=== PATIENT | female | born 1945 | race Caucasian/White ===

== ENCOUNTER 2024-10-29 06:14 | Day surgery (SDC) | payer MEDICARE, OTHER, SELFPAY ==
[2024-10-29] VITALS (12 sets, daily range): BP systolic 104–153; BP diastolic 54–78; BMI 28.6
[2024-10-29 09:18] LABS: ACT-LR - POC 313 Seconds (116-155)
[2024-10-29 09:42] LABS: ACT-LR - POC 248 Seconds (116-155)
--- NOTE | 2024-10-29 10:34 | ITS.CL.PN ---
Media Monitor - Procedure Note
Procedure
Procedure Note:
CARDIAC CATHETERIZATION REPORT
Date of Procedure: 10/29/2024
Referring: Dr. Dave Keen MD
Indication: severe aortic stenosis
PROCEDURE:
1. right heart catheterization
3. coronary angiography
3. iFR of OM1
4. iFR of LAD
ACCESS:
6 Cuban right radial artery
CATHETERS:
1. 6 Cuban AR2 (JR4 and JR5 did not reach)
2. 6 Cuban JL3.5
3. 6 Cuban XB 3.5 guide
4. 6 Cuban EBU 3.5 guide (better fit for LAD)
HEMODYNAMIC DATA
AO 171/82 (mean 112) mmHg
CORONARY ANGIOGRAPHY
Dominance: left
LM: calcified short vessel without obstructive disease
LAD: gives rise to a moderate sized D1 and wraps around the apex. There are serial 40-60% stenoses in the mid-LAD. The mid LAD was assessed by iFR.
LCx: gives rise to a large OM1, moderate size OM2, moderate size LPDA. There is a focal 30% stenosis in the proximal vessel, focal 60-70% stenosis in the OM1, and focal 50% stenosis in the LPDA. The OM1 was further assessed by iFR.
RCA: small non-dominant vessel with a focal 40% proximal stenosis.
iFR of OM1: Using a XB3.5 guide catheter, an Omni wire was normalized in the LM, and then advanced to the distal OM1 where iFR was measured 3 times and positive (0.81, 0.81, 0.81). On iFR pullback there was focal pattern with nearly the entire
contribution from the OM1 stenosis. iFR appropriately returned to 1.0 in the left main.
iFR of LAD: Due to LCx selectivity and short LM, the XB3.5 would not allowing wiring of the LAD so an EBU3.5 guide catheter was selected, the Omni wire normalized again in the left main, advanced to the distal LAD. iFR was measured 3 times and was
positive (0.75, 0.76, 0.75). There was a diffuse pattern on iFR pullback. iFR appropriately returned to 1.0 in the left main.
Closure Device: TR band
CONCLUSIONS:
1. 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
RECOMMENDATIONS:
1. Expectant management after cardiac catheterization via right radial approach.
2. Her CAD is amenable but not ideal for percutaneous revascularization given the long segment of LAD that would require stenting. Her symptoms are more consistent with severe than coronary artery disease. While at advanced age, her surgical risk
is relatively low and she is likely to require a second valve intervention in her lifetime. Given all these considerations, heart team discussion will be important to determine ideal approach: TAVR+/-PCI vs. AVR/CABG. Next step is TAVR CT scan to
complete her workup. She will see CT surgery in the office and we will then discuss her options at our multi-disciplinary TAVR meeting.
Copy to: Dr. Dave Keen MD (program officer); MAIA Heath (primary care)
Signed: Tomas Romero MD, PhD
[2024-10-29] MEDS: NSS 1000 IV (10:46)
== END 2024-10-29 14:05 | disposition home or self-care (01) ==
LOC: CATH 06:14
PROVIDERS: ATTENDING PHYSICIAN Student in an Organized Health Care Education/Training Program; FAMILY PHYSICIAN Nurse Practitioner Family; OTHER PHYSICIAN Internal Medicine Cardiovascular Disease
DX: I35.0 Nonrheumatic aortic (valve) stenosis (principal); I25.10 Atherosclerotic heart disease of native coronary artery without angina pectoris; Z79.82 Long term (current) use of aspirin; Z79.899 Other long term (current) drug therapy
CPT/HCPCS: 93799; 85347; 93454; 93458; C1769; C1887; C1894; Q9967

== ENCOUNTER → 2024-11-08 09:12 | Outpatient (REF) | payer MEDICARE, OTHER, SELFPAY | LOC: RAD 09:12 | PROVIDERS: ATTENDING PHYSICIAN Nurse Practitioner Adult Health; FAMILY PHYSICIAN Nurse Practitioner Family | DX: I35.0 Nonrheumatic aortic (valve) stenosis (principal) | CPT/HCPCS: 74174; 75572; Q9967 ==

== ENCOUNTER 2024-11-30 09:46 | Day surgery (SDC) | payer MEDICARE, OTHER, SELFPAY ==
[2024-11-30] VITALS (14 sets, daily range): BP systolic 101–155; BP diastolic 48–74; BMI 28.8
[2024-11-30 12:17] LABS: ACT-LR - POC 258 Seconds (116-155)
[2024-11-30 12:46] LABS: ACT-LR - POC 285 Seconds (116-155)
--- NOTE | 2024-11-30 17:05 | W.PN.UPDATE ---
Update Note
Progress Note Update
Pt seen post LAD and OM1 PCI. Right radial cath site without ht/bleeding, non tender. OOB ambulating. Post EKG NSR 65 w/RBBB as before, no acute changes, no vt/arrhythmia on tele. Pt and understand the importance of uninterrupted DAPT w/asa,
plavix post stenting, and will continue other meds as before. Severe noted and pt is on track for TAVR in the near future. Cardiac rehab will be delayed until post TAVR. Followup with Dr. Keen as scheduled. Home later today if cath site/tele
remain stable.
--- NOTE | 2024-11-30 18:20 | ITS.CL.PN ---
Home Planning Consultant Salesperson - Procedure Note
Procedure
Procedure Note:
CARDIAC CATHETERIZATION REPORT
Date of Procedure: 11/30/2024
Referring: Dr. Dave Keen MD
Indication: revascularization of obstructive coronary artery disease prior to TAVR
PROCEDURE(S)
1. Ultrasound guided vascular access
2. coronary angiography
3. IVUS LAD
4. PCI with stent to LAD
5. IVUS LCx
6. PCI with stent to LCx
7. Moderate sedation initial 15 minutes
8. Moderate sedation additional 15 minutes
ACCESS: 6F right radial artery (closure: radial band)
CATHETER: 6F EBU3.0 guide catheter (better fit than EBU 3.5)
VASCULAR ACCESS: Under ultrasound guidance, the right radial artery was identified and patency confirmed. The vessel was then accessed using a micropuncture needle and modified Selinger technique with needle entry visualized in real-time. An 6F
sheath placed.
MODERATE SEDATION: Greater than 30 minutes of procedural sedation was utilized. An independent medical associate was present to assist with and help manage the patient's level of consciousness and physiologic status.
CORONARY ANGIOGRAPHY
Dominance: right
LM: mild ostial narrowing
LAD: gives rise to a small D1, moderate caliber D2, and wraps around the apex. There are serial moderate stenoses in the mid LAD extending from the D2 takeoff distally. There is moderate 60% stenosis of the ostial diagonal.
LCx: gives rise to a large OM2, moderate caliber OM2, and moderate caliber LPL branch. The OM1 contains moderate disease in the proximal vessel with a focal region of 70% stenosis. There is otherwise mild disease only.
RCA: not injected as nor significant disease on recent coronary angiography
IVUS-guided PCI of the LAD
Heparin was administered to achieve ACT greater than 300 seconds. Runthrough wires were placed in the distal LAD, as well as the D2 for protection. Initial lesion preparation was performed with a 2.0 x 12 mm semi compliant balloon with full
expansion. IVUS was performed demonstrating a distal reference diameter of 2.5 mm and proximal reference diameter 3.0 mm proximal to the diagonal branch. A 2.5 x 38 mm Ulices [place] drug-eluting stent was selected and delivered with sufficient
proximal landing zone to allow for POT. There was full stent expansion at 14 tobin. The diagonal had ELENA-3 flow and the ostial stenosis actually looked improved in appearance. The diagonal protection wire was removed and then rewired through stent
struts. Proximal optimization was performed with a 3.0 x 8 mm NC balloon taken to 16 mmHg. The remainder of the stent was postdilated with a 2.75 x 15 mm NC balloon to 16 mmHg. There was noted to be a subtle distal edge dissection, which was
covered with an additional 2.5 x 15 mm Guild frontier drug-eluting stent taken to 14 tobin. The overlap was postdilated again with a 2.75 mm NC balloon to 16 mmHg. Final angiographic result was excellent. Final IVUS demonstrated full expansion and
apposition without edge dissection. We then turned our attention to the circumflex.
IVUS-guided PCI of the LCx
The wire was redirected to the circumflex and placed in the distal OM1 branch. Initial lesion preparation was performed with the 2.0 x 12 mm semicompliant balloon with full expansion. IVUS was unable to be delivered distal to the lesion but was
able to measure a reference vessel diameter 2.75 mm. The 2.75 x 15 mm NC balloon was used to further retreat the lesion. A 2.75 x 15 mm Ulices [place] drug-eluting stent was a selected but would not deliver to the lesion. Using balloon assisted
tracking, a 6 Wolof guide liner was delivered to the ostium of the OM1, after which the stent was easily delivered and deployed at 16 tobin nailing the ostium. IVUS was then performed and demonstrated excellent stent apposition and expansion without
dissection with mild relative under sizing of the proximal stent edge at the ostium. Post dilation was thus performed with a 3.0 x 8 mm NC balloon taken to high-pressure. Final angiographic result was excellent. The wire and guide were removed.
A TR band was placed.
RADIATION: dose 1004 mGy; DAP 59.9 Gy*cm2; fluoroscopy time 30.3 min
CONCLUSIONS
1. Successful IVUS guided PCI of the mid LAD with placement of overlapping 2.5 x 38 and 2.5 x 15 mm Guild frontier drug-eluting stents postdilated proximally with a 3.0 mm NC balloon and throughout with a 2.75 mm NC balloon to high pressure.
2. Successful IVUS guided PCI of the ostial to proximal OM1 with placement of a 2.75 x 15 mm Guild frontier drug-eluting stent postdilated proximally with a 3.0 mm NC balloon.
RECOMMENDATIONS
1. expectant management after cardiac catheterization via right radial approach
2. aggressive secondary prevention of coronary artery disease
3. continue DAPT with aspirin and Plavix for 6 months, then ASA for life
4. proceed with transfemoral TAVR in approximately 1 month
Copy to: Dr. Dave Keen MD (family engagement specialist); MAIA Heath (primary care)
Signed: Tomas Romero MD, PhD
[2024-12-01 08:37] LABS: ACT-LR - POC > 397 Seconds (116-155)
== END 2024-11-30 19:59 | disposition home or self-care (01) ==
LOC: CATH 09:46
PROVIDERS: ATTENDING PHYSICIAN Student in an Organized Health Care Education/Training Program; FAMILY PHYSICIAN Nurse Practitioner Family; OTHER PHYSICIAN Internal Medicine Cardiovascular Disease
DX: I25.10 Atherosclerotic heart disease of native coronary artery without angina pectoris (principal); Z79.02 Long term (current) use of antithrombotics/antiplatelets; Z79.82 Long term (current) use of aspirin; I45.10 Unspecified right bundle-branch block; Z79.899 Other long term (current) drug therapy; I10 Essential (primary) hypertension; E78.5 Hyperlipidemia, unspecified; I35.0 Nonrheumatic aortic (valve) stenosis
CPT/HCPCS: 92978; 92979; 99152; 99153; 85347; 93005; C1725; C1753; C1769; C1874; C1887; C1894; C9600; Q9967

== ENCOUNTER 2025-01-13 05:28 | Inpatient (IN) | payer MEDICARE, OTHER, SELFPAY ==
--- NOTE | 2025-01-05 07:19 | HPS.HSE ---
Family Physician
-
Family Physician: Linda Obregon
Chief Complaint
-
fatigue
History of Present Illness
Ms. Swanson is a very pleasant 79 yof with PMH including , asthma, HTN, MVP, pneumonia, bilateral carotid bruit, and borderline diabetes. Her echocardiogram from 09/17/2024 is notable for EF 60%, AV P/M 68/45, DANIEL 0.8-0.9, pk uli 4.12, no AI, MAC,
PAP 20. Her LHC from 10/29/24 demonstrated two vessel obstructive CAD in a left dominant system with iFR positive focal proximal OM1 stenosis and iFR positive diffuse mid-LAD disease. The heart team reviewed studies and recommended PCI + TAVR. She
was brought back to the catheterization lab on 11/30/2024 and successful IVUS guided PCI of the mid LAD with placement of overlapping 2.5 x 38 and 2.5 x 15 mm Ulices frontier drug-eluting stents postdilated proximally with a 3.0 mm NC balloon and
throughout with a 2.75 mm NC balloon to high pressure. Successful IVUS guided PCI of the ostial to proximal OM1 with placement of a 2.75 x 15 mm [place] frontier drug-eluting stent postdilated proximally with a 3.0 mm NC balloon. From a symptomatology
standpoint, Ms Swanson describes feeling more tired and fatigued. She has been fully reviewed by the heart team and the team recommended proceeding with (L) transfemoral TAVR utilizing a 26mm Evolut FX+. Assessed patient in preadmission testing and
confirmed medication list. She will continue aspirin and plavix (recent stent) including the morning of TAVR. Patient will arrive to the [facility] at 0530. Reviewd the risks of the procedure including stroke, ppm, and vascular injury. Informed
Ms. Swanson she will recieve a phone call from the heart team on Friday01/11/25 to confirm time and location of arrival. Allowed for and answered questions.
Medical History
Past Medical History
Past Medical History: Reports Asthma, HTN, Valvular Disease (aortic stenosis, MVP) and Other (RA, borderline diabetes, pneumonia, bilateral carotid bruits, macular degeneration)
Past Surgical History: Reports Gynocological (), Orthopedic ((R) hip replacement) and Other (abdominal hernia)
Social History
Tobacco: Non-smoker
Alcohol: None
Drug: None
Personal:
Living: With Family
Employment: Retired
Family History
Family History: Diabetes and Hypertension
Allergies / Home Medications
Allergies reflects when Allergies were last updated in [employer].
NKDA
Home Medications with original date entered in [employer]
amLODIPine Besylate 10 MG Tablet 1 tablet Orally Once a day
Aspirin 81(Aspirin) 81 MG Tablet Chewable 1 tablet Orally Once a day
Atenolol 25 MG Tablet 1 tablet Orally Three Times a Day, one in the morning and two in the evening
Calcium 500-125 MG-UNIT Tablet 1 tablet Orally once a day
Clopidogrel 75 mg PO daily
Escitalopram Oxalate 10 MG Tablet TAKE 1 TABLET EVERY DAY Oral
Gabapentin 300 MG Capsule 1 capsule Orally Once a day
Leflunomide 10 MG Tablet 1 tablet Orally Once a day
Multivitamin , Notes to Pharmacist: 1 tab in the morning
Omeprazole 40 MG Capsule Delayed Release 1 capsule 30 minutes before morning meal Orally Once a day
PreserVision AREDS 2(Multiple Vitamins-Minerals) - Capsule as directed Orally , Notes to Pharmacist: 1 tab, twice a day
Rosuvastatin Calcium 10 MG Tablet 1 tablet Orally Once a dayVitamin D 50 MCG (2000 UT) Tablet 1 tablet Orally Once a day
Allergy/Medication List:
NKDA
Review of Systems
-
History Source: Patient
Constitutional: Reports Fatigue
EENT: Reports No Symptoms
Respiratory: Reports No Symptoms
Cardiac: Reports No Symptoms
Abdomen/GI: Reports No Symptoms
: Reports No Symptoms
Musculoskeletal: Reports No Symptoms
Skin: Reports No Symptoms
Neurological: Reports No Symptoms
Endocrine: Reports No Symptoms
Hematologic/Lymphatic: Reports No Symptoms
Psych: Reports No Symptoms
Physical Exam
Physical Exam
General: Well Developed, Well Nourished, No Apparent Distress and Comfortable
HEENT: NormoCephalic and Moist mucous membranes
Respiratory: Clear
Cardiac: S1/S2, Regular Rhythm and Murmur (III/ DOREEN)
Breast: Deferred by me
GI: Soft and Non Tender
Rectal: Deferred by Provider
Genito-urinary: Deferred by me
Musculoskeletal: No Edema
Skin: Warm and Dry
Neuro: Awake, Alert, Oriented and AO x 3
Psych: Calm
Data Reviewed
-
CT Scan: Report Reviewed by me and Discussed with Physician (reviewed with the heart team)
Medical Tests (Nuc Med, Echo, EKG etc): Report Reviewed by me and Discussed with Physician (echocardiogram and cardiac catheterization reviewed with the heart team)
Lab Data: Labs Reviewed by me
Old Records: Reviewed (office notes and studies )
Impression/Plan
-
IMPRESSION/PLAN:
#Aortic Stenosis
TF TAVR planned for 01/13/[address] Thornton and Ncik
Continue aspirin + plavix (recent stent)
POD #1/#30 echocardiogram
Cardiac rehab consult
#CAD
Continue aspirn/plavix/atenolol/rosuvastatin
Cardiac rehab after TAVR
#RBBB
Notify EP of TAVR date
Labs
-
Labs:
WBC 7.2 10^3/uL (4.8-10.8) 01/05/25 12:06
RBC 4.74 10^6/uL (4.20-5.40) 01/05/25 12:06
Hgb 14.0 g/dL (12.0-16.0) 01/05/25 12:06
Hct 42.3 % (37.0-47.0) 01/05/25 12:06
Plt Count 205 10^3/uL (130-400) 01/05/25 12:06
Sodium 139 mmol/L (135-145) 01/05/25 12:06
Potassium 4.0 mmol/L (3.5-5.1) 01/05/25 12:06
Chloride 100 mmol/L (98-107) 01/05/25 12:06
Carbon Dioxide 30 mmol/L (22-30) 01/05/25 12:06
BUN 15 mg/dl (7-17) 01/05/25 12:06
Creatinine 0.6 mg/dL (0.6-1.0) 01/05/25 12:06
eGFR > 60.00 01/05/25 12:06
Glucose 80 mg/dl (70-99) 01/05/25 12:06
Calcium 9.4 mg/dl (8.4-10.2) 01/05/25 12:06
Albumin 4.5 g/dl (3.5-5.0) 01/05/25 12:06
[2025-01-05 11:55] VITALS: BMI 28.4
[2025-01-05 12:39] LABS: % Basophils 0.8 % (0-2); % Eosinophils 7.6 % (0-6); % Immature Granulocytes 0.4 % (0-0.5); % Lymphocytes 25.6 % (20.5-51.1); % Neutrophils 53.6 % (42.2-75.2); Absolute Basophils 0.1 10^3/uL (0-0.2); Absolute Eosinophils 0.6 10^3/uL (0-0.7); Absolute Lymphocytes 1.9 10^3/uL (1.2-3.4); Absolute Monocytes 0.9 10^3/uL (0.1-0.6); Absolute Neutrophils 3.9 10^3/uL (1.4-6.5); Hematocrit 42.3 % (37.0-47.0); Mean Corp Hgb Conc. 33.1 g/dL (33.0-37.0); Mean Corpuscular Hgb 29.5 pg (27.0-31.0); Mean Corpuscular Volume 89.2 fL (81.0-99.0); Nucleated Red Blood Cells % 0 %; Platelet Count 205 10^3/uL (130-400); Red Blood Cell Count 4.74 10^6/uL (4.20-5.40); Red Cell Dist. Width 12.1 % (11.5-14.5); White Blood Cell Count 7.2 10^3/uL (4.8-10.8)
[2025-01-05 12:40] LABS: Urine Albumin 1+ (Neg - Trace); Urine Bilirubin Negative (Negative); Urine Character Clear (Clear); Urine Color Yellow; Urine Glucose Negative (Negative); Urine Ketone Negative (Negative); Urine Leukocyte 3+ (Negative); Urine Nitrite Negative (Negative); Urine Occult Blood 1+ (Negative); Urine Specific Gravity 1.005 (<1.030); Urine Urobilinogen Negative (Neg - 1+)
[2025-01-05 12:52] LABS: INR 0.98; PT 13.5 Sec (11.4-14.6)
[2025-01-05 12:53] LABS: APTT 23.6 Sec (23.4-35.0)
[2025-01-05 12:57] LABS: Urine Red Cell Cast 0-2 /LPF; Urine Squamous Cell 0-2 /LPF (Few)
[2025-01-05 12:58] LABS: Urine Bacteria Moderate (Negative)
[2025-01-05 13:27] LABS: ALT (SGPT) 23 U/L (0-35); AST (SGOT) 27 U/L (14-36); Albumin 4.5 g/dl (3.5-5.0); Alkaline Phosphatase 96 U/L (38-126); Blood Urea Nitrogen 15 mg/dl (7-17); Calcium 9.4 mg/dl (8.4-10.2); Carbon Dioxide 30 mmol/L (22-30); Chloride 100 mmol/L (98-107); Direct Bilirubin 0.1 mg/dl (0.0-0.4); Estimated Creatinine Clearance 77 ml/min; Glucose 80 mg/dl (70-99); Sodium 139 mmol/L (135-145); Total Bilirubin 0.8 mg/dl (0.2-1.3); Total Protein 7.3 g/dl (6.3-8.2); eGFR > 60.00
--- NOTE | 2025-01-05 13:53 | CM ---
CM following for DC planning needs.
Met w/ patient during PATs for planned TAVR, 01/13.
Pt. resides in a private, split level home w/ spouse. Home has 5 [address] with approx. 9 steps to main living area.
Pt. is functionally indep. prior to admission w/ ADLs, mobility without the use of any assisted device.
Pt. has RX plan and uses [facility] in [place] for prescription needs.
Reviewed pre and post op routines.
Soap, shower instructions and TAVR booklet provided.
Discussed post op restrictions to include lifting, driving restrictions.
Reviewed post op MD appointments, Cardiac Rehab and visit from [facility] Transitional [facility] RN.
Plan for TAVR, 01/13.
Anticipated DC plan is for home with [facility] RN.
CM to follow.
[2025-01-13] VITALS (25 sets, daily range): BP systolic 88–164; BP diastolic 44–76; BMI 28.4; BMI 27.9
--- NOTE | 2025-01-13 06:09 | PTCARENOTE ---
Patient received as direct admit for TAVR procedure. Surgical clip and CHG bath completed. Patient NSR on library monitor. Peripheral IV inserted. Admission assessment completed. Patient endorses NPO status. Took Aspirin 81mg and Plavix 75mg at
0400 as instructed. Bilateral blood pressures completed. Neurological check WDL. Patient AOx3. Denies pain. Murmur noted. Bilateral radial and pedal pulses +2 to palpation. Lungs clear to auscultation bilaterally. MASD to lower abdominal fold noted.
Oxygen saturation 93% on room air. Patient states she is nervous for the procedure but otherwise offers no complaints. Spouse is at bedside. Dr. Romero notified regarding H&P being greater than thirty days old, per physician he will update this.
Call camacho within reach. Care ongoing.
--- NOTE | 2025-01-13 07:32 | W.CVOR.SURPR ---
CVOR Surgeon Immed Pre Op
-
I have examined this patient prior to performance of the scheduled procedure.
The patient's condition is unchanged from the time of the dictated/written History and
Physical and the patient is able to undergo the scheduled procedure.
[2025-01-13 08:21] LABS: ACT-LR - POC 239 Seconds (116-155)
[2025-01-13 08:30] LABS: ACT-LR - POC 269 Seconds (116-155)
--- NOTE | 2025-01-13 08:57 | W.IMMPOSTOP ---
Addendum entered and electronically signed by Robert Thornton MD 01/13/25 09:20:
[id number]
Original Note:
Surgical Immed Post Op Note
-
STRUCTURAL HEART PROCEDURE NOTE: TAVR
Preoperative Dx:
Severe aortic stenosis (P/M: 68/45mmHg, DANIEL 0.8-0.9, Illuminating Engineer 4.12)
CAD s/p recent PCI/stenting
MV prolapse, no sig MR
RA
HTN
GERD
Asthma
Macular degeneration
Postoperative Dx:
Same
Procedures:
1) R CFV access w/ U/S and fluoroscopic guidance, Seldinger technique, Long 6Fr sheath placement
2) R CRUSHER AND BLENDER OPERATOR access w/ tactile, U/S, and fluoroscopic guidance, Seldinger technique, 6Fr sheath placement
3) Attempted placement of temporary pacing wire - unsuccessful - w/ subsequent successful placement of balloon tipped temporary pacing wire w/ threshold testing
4) Placement of pigtail catheter in NCC w/ limited aortography & confirmation of cusp overlap view
5) L CRUSHER AND BLENDER OPERATOR access w/ tactile, U/S, and fluoroscopic guidance, micropuncture technique, limited angiography, 8Fr sheath placement
6) Placement of perclose sutures x 2 into L CRUSHER AND BLENDER OPERATOR, 8Fr sheath placement
7) Placement of 14Fr COOK sheath into L CRUSHER AND BLENDER OPERATOR (systemic heparinization)
8) Fluoroscopic inspection of TAVR valve/delivery system
9) Wire purchase across stenotic AV (AL-1, soft-tip straight, table-J wire, pigtail catheter, LVEDP assessment (17mmHg), lunderquist wire placement)
10) Removal of COOK sheath w/ placement of TAVR valve/in-line sheath via L CRUSHER AND BLENDER OPERATOR
11) Wire repositioning of pigtail catheter in NCC
12) L TF TAVR w/ placement of 26mm EVOLUT FX+
13) Completion aortography
14) Completion TTE (no AI/PVL, mean gradient 6mmHg)
15) Removal of valve delivery system w/ L CRUSHER AND BLENDER OPERATOR mgmt w/ perclose sutures x 2; manual pressure
16) Removal of temporary pacing wire
17) Completion L ileofemoral angiography
18) Limited R CRUSHER AND BLENDER OPERATOR angiography w/ subsequent removal of R CRUSHER AND BLENDER OPERATOR 6Fr sheath w/ mgmt w/ 6Fr angioseal; manual pressure
19) Removal of R CFV sheath w/ mgmt w/ manual pressure
Cardiac Surgeon:
Robert Thornton M.D.
Spool Fixer:
Tomas Romero M.D.
Anesthesia:
MAC w/ local to B/L groins
Implants:
Medtronic Evolut Fx+, 26mm valve; SN: [id number]
Perclose x 2 to L CRUSHER AND BLENDER OPERATOR
6Fr angioseal x 1 to R CRUSHER AND BLENDER OPERATOR
Cath Data:
Start: 0747hrs, Deploy: 0832hrs, End: 0852hrs
FT: 22.7min, mGy: 297.46, DAP: 39.4743, Contrast: 106mL
Post-TTE: no AI/PVL, mean gradient 6mmHg
Complications:
None
Condition:
Stable/guarded to recovery
--- NOTE | 2025-01-13 09:07 | ITS.CL.PN ---
Construction Project Manager - Procedure Note
Procedure
Procedure Note:
TRANSCATHETER AORTIC VALVE REPLACEMENT REPORT
Date of Procedure: 01/13/2025
Referring: Dr. Dave Keen MD
Indication: symptomatic severe aortic stenosis
Operators: Tomas Romero MD, PhD (interventional cardiology); Dr. Robert Thornton MD (CT surgery)
Anesthesia: conscious sedation provided by the anesthesia staff
PROCEDURE: transfemoral, transcatheter aortic valve replacement with a Evolut Fx Plus 26 mm valve
ACCESS:
1. 6F right femoral vein (closure: manual hemostasis)
2. 6F right common femoral artery (closure: Angioseal)
3. 14F left common femoral artery (closure: Perclose x2)
ULTRASOUND GUIDED VASCULAR ACCESS (right femoral artery): Ultrasound was utilized for vascular access. The vessel was visualized under ultrasound and noted to be patent. An image of the vessel was stored permanently in the patient's medical record.
Under direct ultrasound guidance, vascular access was obtained using a modified Seldinger technique and a 6 Croatian sheath was placed.
ULTRASOUND GUIDED VASCULAR ACCESS (right femoral vein): Ultrasound was utilized for vascular access. The vessel was visualized under ultrasound and noted to be patent. An image of the vessel was stored permanently in the patient's medical record.
Under direct ultrasound guidance, vascular access was obtained using a modified Seldinger technique and a 6 Croatian sheath was placed.
ULTRASOUND GUIDED VASCULAR ACCESS (left common femoral artery): Ultrasound was utilized for vascular access. The vessel was visualized under ultrasound and noted to be patent. An image of the vessel was stored permanently in the patient's medical
record. Under direct ultrasound guidance, vascular access was obtained using a modified Seldinger technique and a 8 Croatian sheath was placed.
HEMODYNAMIC DATA
LV 17 mmHg
PROCEDURE NARRATIVE:
The patient was prepped and draped in standard sterile fashion. Conscious sedation was provided by the anesthesia staff. 6F right femoral vein and right common femoral artery access was obtained with ultrasound guidance using micropuncture technique
with verification of appropriate arteriotomy location via hand injection angiography. A temporary venous pacing wire was advanced via the right femoral vein to the right ventricle under fluoroscopic guidance with appropriate capture verified. A 5F
pigtail catheter was advanced via the right common femoral artery and seated in the non-coronary cusp. Angiography was performed to verify the cusp overlap angle.
8F left common femoral artery access was obtained with ultrasound guidance using micropuncture technique with verification of appropriate arteriotomy location via hand injection angiography. The arteriotomy was preclosed with two Perclose sutures
followed by replacement of the 8F sheath. Using an AL1 catheter, a Lunderquist wire was placed in the descending thoracic aorta. A 12F dilator was advanced over the Lunderquist wire followed by placement of a 14F Cook sheath. Heparin 6500 units was
given. The AL1 catheter was re-advanced through the E-sheath to the level of the ascending aorta. The Lunderquist wire was exchanged for a soft tipped straight wire which was used to cross the aortic valve and deposit the AL1 in the LV apex. A
J-wire was used to exchange the AL1 for a pigtail catheter in the LV and LVEDP was measured. The Lunderquist wire was advanced through the pigtail catheter and seated in the LV apex. ACT was checked and confirmed to be >250 seconds.
The valve was inspected under fluoroscopy to confirm lack of infolding above the 4th node. The Cook sheath was removed, and the in-line sheath was advanced over the Lunderquist wire into the descending aorta. The valve was then advanced over the
aortic arch and into the left ventricle. In the cusp overlap view, the valve was slowly deployed to the point of flowering. The patient was paced to adequately lower pulse pressure as the valve was deployed through the rumble strips to 80%.
Injection demonstrated a non-coronary cusp implant depth of 3 mm. Angiography performed in an MACEDONIAN projection demonstrated left coronary cusp implant depth of 3 mm. The decision was made to proceed with full deployment. In the cusp overlap view, the
delivery handle was slowly rotated until both paddles were released from the superior aspect of the valve. The Lunderquist wire was partially withdrawn to lift the nose cone of the valve delivery device. The delivery device was withdrawn to the
descending aorta and re-assembled. The patient was resuscitated by anesthesia with recovery of adequate blood pressure. Telemetry demonstrating sinus rhythm. Aortography demonstrated good valve positioning, adequate coronary filling, and no aortic
valve insufficiency. Echocardiography confirmed no aortic insufficiency. Mean valve gradient was 6 mmHg.
The valve deployment system and inline sheath were removed, and hemostasis obtained with the two Perclose sutures. Protamine 30 units was given. Aortoiliac angiography demonstrated no evidence of iliofemoral dissection/perforation and good runoff
below the common femoral artery bilaterally. The pacemaker and the pigtail catheter were removed. The right femoral artery sheath was removed using a 6F Angioseal. The right femoral venous sheath was removed with manual pressure.
RADIATION: dose went up to 297 mGy; DAP 39.4 Gy*cm2; fluoroscopy time 22.7 min
CONCLUSIONS: successful placement of a Evolut Fx Plus 26 mm transcatheter aortic valve via left transfemoral approach with no acute complications
Copy to: Dr. Dave Keen MD (art librarian); Linda Obregon NP (PCP)
Signed: Tomas Romero MD, PhD
[2025-01-13] MEDS: LEVOPHED 250 IV (10:05)
--- NOTE | 2025-01-13 11:42 | PTCARENOTE ---
Rec'd pt from pathology laboratory aide awake and alert. Pt with Rt and left groin dsg intact,no bleeding, no hematoma. Pt with weak palpable pulses to bilateral LE. Levo infusing at 1mcg/min upon admission. D/c'd at 1100. Pt denies pain, denies sob. Pt sleepy but
easily aroused. Neuro check done. Pt with no neuro deficits. Pts at bedside. Updated him on plan of care, encouraged questions. See worklist for VS/I and O and assessments.
--- NOTE | 2025-01-13 14:11 | PTCARENOTE ---
Pt OOB with assistance. Pt ambulated to bathroom, voided without difficulty and then assisted to chair. Rt and left groin dsgs intact, no bleeding noted. Pt tolerated lunch without difficulty.
[2025-01-13] MEDS: ANCEF 5 IV (14:47)
[2025-01-13] MEDS: ANCEF 10 IV ×2 (14:47)
[2025-01-13] MEDS: TENORMIN 50 MG PO (17:06)
[2025-01-13] MEDS: CRESTOR 10 MG PO (21:00)
[2025-01-13] MEDS: LEXAPRO 10 MG PO (21:00)
[2025-01-13] MEDS: NEURONTIN 300 MG PO (21:00)
--- NOTE | 2025-01-13 21:11 | PTCARENOTE ---
Patient received at change of shift resting in the bed. Patient offers no complaints at this time. Right groin gauze with tegaderm C/D/I, ecchymosis noted but the area is soft to palpation. Left groin gauze with tegaderm has a scant amount of
drainage noted which is marked. Bilateral pedal pulses palpable. Patient denies pain at the surgical sites and denies other discomfort such as chest pain and/or SOB. Normal sinus rhythm on surveillance monitor, oxygen saturation 93% on room air. Call
camacho within reach. Plan of care discussed. Care ongoing.
[2025-01-13] MEDS: NORVASC 5 MG PO (21:30)
[2025-01-14 02:34] VITALS: BP 155/60
[2025-01-14 02:59] VITALS: BMI 28.1
[2025-01-14 03:37] LABS: Hematocrit 35.2 % (37.0-47.0); Mean Corp Hgb Conc. 34.1 g/dL (33.0-37.0); Mean Corpuscular Hgb 29.8 pg (27.0-31.0); Mean Corpuscular Volume 87.3 fL (81.0-99.0); Platelet Count 166 10^3/uL (130-400); Red Blood Cell Count 4.03 10^6/uL (4.20-5.40); Red Cell Dist. Width 11.9 % (11.5-14.5); White Blood Cell Count 9.1 10^3/uL (4.8-10.8)
[2025-01-14 03:54] LABS: Blood Urea Nitrogen 13 mg/dl (7-17); Calcium 8.3 mg/dl (8.4-10.2); Carbon Dioxide 31 mmol/L (22-30); Chloride 103 mmol/L (98-107); Estimated Creatinine Clearance 76 ml/min; Glucose 115 mg/dl (70-99); Potassium 3.3 mmol/L (3.5-5.1); Sodium 137 mmol/L (135-145); eGFR > 60.00
[2025-01-14] MEDS: KCL 40 MEQ PO (05:27)
--- NOTE | 2025-01-14 05:33 | W.PN.CT ---
Today's Communication / Plan
-
-pod #1
-no issues overnight
-ECG: nsr, old RBBB, ? new LAFB - will review with Cardiology
-nsr 70s-80 overnight. No herbert or pauses
-Echo today
-current meds (ASA, Plavix, Atenolol bid, Norvasc, Crestor, Protonix)
-encourage IS, OOB, ambulate
Assessment / Plan
-
- Severe symptomatic - s/p L TF TAVR w/ placement of 26mm EVOLUT FX+ on 01/13/25, pod #1
- Post-TTE: no AI/PVL, mean gradient 6mmHg
- CAD s/p recent PCI/stenting- on ASA and Plavix preop
- Pre-existing RBBB
- MV prolapse, no sig MR
- RA
- HTN/HLD
- GERD
- Asthma
- Macular degeneration
- Mod-large hiatal hernia
- <4 mm pulmonary nodues
Discussed patient care with: Nursing and Care Team
Subjective
-
Date of Service: January 14, 2025
Objective Data
-
PT 13.5 Sec (11.4-14.6) 01/05/25 12:06
INR 0.98 01/05/25 12:06
APTT 23.6 Sec (23.4-35.0) 01/05/25 12:06
Vital Signs
Vital Signs
Temp Pulse Resp BP Pulse Ox
100.5 F H 73 20 154/58 92
01/13/25 23:00 01/14/25 01:00 01/13/25 23:00 01/13/25 23:31 01/13/25 23:00
CT Intake/Output/Weight
02/20/25 02/20/25 02/21/25
06:59 18:59 06:59
Intake Total 1989
Output Total 350 / 350
Balance 1640 / 1640
SaO2: 92
Physical Exam
-
General: Awake and AOx3
Cardiovascular: Regular rate & rhythm, No Murmurs and No Rub
Respiratory: Clear and Decreased Breath Sounds
Incision: Other (groins are soft, nontender, cdi, no hematoma b/l)
Extremities: No Edema (2+ DP and PT b/l)
Abdomen: soft, nontender, nondistended, + bowel sounds
Data Reviewed
-
Lab Results: Results Reviewed
Medications: Active Meds Reviewed
Chest X-Ray: Report Reviewed and Image Reviewed
ECG: Report Reviewed and Image Reviewed
--- NOTE | 2025-01-14 07:12 | W.PN.ANS.POP ---
Anesthesia Post Operative
- Anesthesia Post Op Note
Vital Signs Stable-See Nursing Note: Yes
Airway Patent: Yes
Adequate Pain Control: Yes
Change in Mental Status: No
Current Postoperative Nausea & Vomiting: No
Anesthesia Complications: No
General Anesthetic Recall: No
Unplanned Admission: No
Post Op Hydration Adequate: Yes
[2025-01-14 08:22] VITALS: BP 134/60
[2025-01-14] MEDS: TENORMIN 25 MG PO (09:29)
[2025-01-14] MEDS: PLAVIX 75 MG PO (09:30)
[2025-01-14] MEDS: PROTONIX 40 MG PO (09:30)
[2025-01-14] MEDS: NORVASC 10 MG PO (09:30)
[2025-01-14] MEDS: ASPIR LOW (ENTERIC COATED) 81 MG PO (09:30)
[2025-01-14] MEDS: THERAGRAN 1 TABLET PO (09:31)
[2025-01-14] MEDS: VITAMIN D3 (cholecalciferol) 50 MCG PO (09:32)
[2025-01-14] MEDS: FLUSH (NSS) 2 FLUSH IV (09:32)
--- NOTE | 2025-01-14 09:46 | W.DCSUMMARY ---
Discharge Summary
Discharge Data
Date of Admission: 01/13/25
Date of Discharge: 01/14/25
Total time spent discharging patient (in min): 35
-
Pending Results: No
Hospital Course
Primary care physician:
Dr. Linda Obregon
Outpatient roller engraver:
Dr Dave Keen
Inpatient consultants:
CBC
Procedures:
1. Left transfemoral TAVR with #26 mm Medtronic evolute fracture valve
Primary Diagnosis:
1. Severe aortic stenosis
Secondary Diagnoses:
1. Hypertension
2. GERD
3. Macular degeneration
4. Acute postop left bundle branch block
5. Rheumatoid arthritis
6. Mitral valve prolapse without mitral regurgitation
6. Coronary artery disease s/p PCI
HPI: 79-year-old female seen in the office by Dr. Thornton presents electively on 01/13 for a transfemoral transcatheter aortic valve replacement with Dr. Thornton
Hospital course:
Patient was electively admitted on 01/13 for a transcatheter aortic valve replacement with Dr. Thornton. There were no intra-op events and patient went to operations label clerk recovery. B/l groins remain stable. She was sent to IVU for the remainder of their
recovery. On 01/14, POD #1, B/L groins remained stable. Her morning EKG showed a new left fascicular bundle branch block however on telemetry she showed no significant pauses or bradycardia. Repeat TTE showed a Peak gradient 25mmHg/Mean gradient
12mmHg. She was deemed stable for discharge. her atenolol will be discontinued until further notice.
Home medication changes:
See below
Discharge Plan
-
Patient Disposition: Home (Routine Discharge)
Discharge Diagnosis/Procedures: TF TAVR
Condition: Good
Diet: Low Fat, Low Cholesterol and 2 Gram Sodium
Activity: As tolerated
Driving Restrictions: No driving for 1 week
Bathing Restrictions: OK to Shower
Others Tests: Your 30-day follow up echocardiogram is: 02/16/2025 @ 11:20 at the [facility] office
Other Services: Cardiac Rehab
Wound Care: No lotions, powders, or creams to puncture sites
Specialty Instructions: Weigh Daily- Call MD for wt gain/loss 3 lbs overnight/5 lbs in 1 week
Activity Restrictions/Additional Instructions:
Please call to make appointments for Phase II Cardiac Rehab:
1) [facility]: [phone]
2) [facility]: [phone]
3) [facility]: [phone]
Referrals:
CT Transitional Care Nurse [Outside] (The Cardiothoracic Transitional Care Nurse will call you to set up a visit in 1-2 days.)
Linad Obregon SENIOR HEALTH EDUCATOR [Family Provider] -
Dave Keen MD [Active] - 02/24/25 9:30 am ( your appt with Dr Keen on 01/21 @ 1pm was CANCELLED)
Additional Discharge Medication Instructions: Please do not take your atenolol until directed to by a doctor
Prescriptions:
Continued
leflunomide 10 mg Tablet
10 mg PO DAILY
amlodipine 10 mg Tablet
10 mg PO DAILY
escitalopram oxalate 10 mg Tablet
10 mg PO HS
PreserVision AREDS 2,148 mcg-113 mg-45 mg-17.4mg Tablet
1 tab PO BID
rosuvastatin 10 mg tablet
10 mg PO HS
clopidogrel 75 mg Tablet
75 mg PO DAILY Qty: 90 3RF
pantoprazole 40 mg Tablet,Delayed Release (Dr/Ec)
40 mg PO DAILY Qty: 90 3RF
calcium carbonate-vitamin D3 600 mg-5 mcg (200 unit) Tablet
1 tab PO BID
aspirin 81 mg Tablet,Delayed Release (Dr/Ec)
81 mg PO DAILY
gabapentin 300 mg Capsule
300 mg PO HS
vllzrygbofkl-uzexssfy-hnbhro Tablet
1 tab PO DAILY
cholecalciferol (vitamin D3) [Vitamin D3] 50 mcg (2,000 unit) Capsule
50 mcg PO DAILY
Discontinued
atenolol 25 mg Tablet
25 mg PO DAILY
atenolol 50 mg Tablet
50 mg PO QPM
Discharge Orders:
Discharge Patient (As Directed); Ordered 01/14/25
Ordered By: Rebecca Arellano
Care Plan Goals
Care Plan Goals:
Problem: Readiness for enhanced knowledge related to diagnosis and treatment plan
Goal: Understand your diagnosis and treatment plan needs, including medications if applicable.
Instructions: Know your diagnosis, underlying causes and treatment plan options, including medications if applicable. Consult with your health care team to learn about your diagnosis and treatment plan, including medications if applicable.
Discharge Date and Time
Print Language: URDU
[2025-01-14 11:04] VITALS: BP 148/66
[2025-01-14 11:12] VITALS: BP 156/67
[2025-01-14 11:19] VITALS: BP 137/56
[2025-01-14 11:24] VITALS: BP 148/66; BP 156/67; PULSE 75; O2SAT 100
--- NOTE | 2025-01-14 11:26 | PTCARENOTE ---
Received patient this morning, right groin is ecchymotic but soft with bilateral groin dressings dry and intact. Patient seen by cardiology, echo done at the bedside and await results. The patient's son is currently being evaluated in the ED, their
daughter is with him.
--- NOTE | 2025-01-14 13:18 | W.PN.CD ---
Today's Communication / Plan
-
Ok for discharge today with quality assurance monitor final.
Impression / Plan
-
Mary Jane Swanson is a 79 year old woman with past medical history of severe POD1 status post TAVR with Evolute Fx Plus 26 mm valve, CAD s/p PCI to LAD/LCx, RA, HTN, macular degeneration. She is doing well post TAVR but did develop a LABF on top of
her pre-existing RBBB overnight with some [place] prolongation. This puts her at higher risk of progressing to higher grade heart block and she will be discharged with a quality assurance monitor final for 2 weeks. Echo today showed a well seated valve with mean
gradient 12 in setting of high flow and no evidence of AI/PVL. She has felt well and ambulated without symptoms.
# s/p TAVR
- cont asa
- standard post-discharge follow up
- echo with normal LV function, normal valve appearance with mean gradient 12 mmHg in setting of high flow
# RBBB, now with LAFB
- 2 week quality assurance monitor final
- high risk for progression and PPM
- hold atenolol for now
# CAD s/p PCI LAD/LCx
- cont. ASA/plavix, statin
- PPI
# HTN
- cont. norvasc while holding atenolol
Physical Exam
Vital Signs/Labs
Vital Signs
Temp Pulse Resp BP Pulse Ox
37.0 C 72 18 137/56 96
01/14/25 11:18 01/14/25 13:00 01/14/25 11:18 01/14/25 11:19 01/14/25 11:19
01/13/25 01/14/25 01/15/25
06:59 06:59 06:59
Actual Weight 73.6 kg 74.2 kg
01/14/25 02:56
01/14/25 02:56
PT 13.5 Sec (11.4-14.6) 01/05/25 12:06
INR 0.98 01/05/25 12:06
APTT 23.6 Sec (23.4-35.0) 01/05/25 12:06
Physical Exam
Constitutional: No acute distress
Cardiovascular: Rhythm & rate is regular
Respiratory: Respiratory effort normal
Neuro/Psych: AO x 3
Data Reviewed
-
Date of Service: January 14, 2025
Medical Decision Making: Reviewed Test Results
EKG: Tracing Personally Visualized and interpreted
Echo: Tracing Personally Visualized and interpreted
Labs: Labs Reviewed by me
[2025-01-14] MEDS: OSCAL 500 + D 500 MG PO (13:20)
--- NOTE | 2025-01-14 15:15 | PTCARENOTE ---
Reviewed discharge instructions with the patient and she states her understanding. Patient requested that I remove bilateral groin dressings prior to discharge, since she was fearful to do this. No oozing noted, ecchymosis right groin unchanged.
Rhythm star monitor placed on the patient. Patient discharged home with her daughter with CT transitional nurse services.
== END 2025-01-14 15:53 | disposition home or self-care (01) | DRG 267 ==
LOC: IVU 05:28
PROVIDERS: Physician Assistant Medical; ADMITTING PHYSICIAN Thoracic Surgery (Cardiothoracic Vascular Surgery); CONSULT PHYSICIAN Student in an Organized Health Care Education/Training Program; FAMILY PHYSICIAN Nurse Practitioner Family
PROC: 02RF38Z Replacement of Aortic Valve with Zooplastic Tissue, Percutaneous Approach (ICD-10-PCS; 2025-01-13)
DX: I35.0 Nonrheumatic aortic (valve) stenosis (principal); Z00.6 Encounter for examination for normal comparison and control in clinical research program; I45.2 Bifascicular block; I25.10 Atherosclerotic heart disease of native coronary artery without angina pectoris; I10 Essential (primary) hypertension; I34.1 Nonrheumatic mitral (valve) prolapse; R09.89 Other specified symptoms and signs involving the circulatory and respiratory systems; J45.909 Unspecified asthma, uncomplicated; K21.9 Gastro-esophageal reflux disease without esophagitis; H35.30 Unspecified macular degeneration; E78.5 Hyperlipidemia, unspecified; R73.03 Prediabetes; K44.9 Diaphragmatic hernia without obstruction or gangrene; R91.1 Solitary pulmonary nodule; M06.9 Rheumatoid arthritis, unspecified; Z79.02 Long term (current) use of antithrombotics/antiplatelets; Z79.82 Long term (current) use of aspirin; Z79.899 Other long term (current) drug therapy; Z95.5 Presence of coronary angioplasty implant and graft
CPT/HCPCS: 93308; 33361; 36415; 71045; 71046; 76937; 80048; 80053; 81003; 81015; 82248; 83036; 85025; 85027; 85347; 85610; 85730; 86850; 86900; 86901; 87070; 87086; 93005; 93306; 93321; 93325; C1760; C1769; C1894; Q9967

== ENCOUNTER 2025-01-16 05:16 | Inpatient (IN) | payer MEDICARE, OTHER, SELFPAY ==
[2025-01-15 23:23] VITALS: BP 150/68
[2025-01-15 23:51] LABS: % Basophils 0.5 % (0-2); % Eosinophils 5.3 % (0-6); % Immature Granulocytes 0.1 % (0-0.5); % Monocytes 15.4 % (1.7-9.3); % Neutrophils 58.7 % (42.2-75.2); Absolute Eosinophils 0.4 10^3/uL (0-0.7); Absolute Lymphocytes 1.7 10^3/uL (1.2-3.4); Absolute Monocytes 1.3 10^3/uL (0.1-0.6); Absolute Neutrophils 4.9 10^3/uL (1.4-6.5); Hemoglobin 12.7 g/dL (12.0-16.0); Mean Corp Hgb Conc. 34.3 g/dL (33.0-37.0); Mean Corpuscular Hgb 29.9 pg (27.0-31.0); Mean Corpuscular Volume 87.1 fL (81.0-99.0); Mean Platelet Volume 9.7 fL (7.4-10.4); Nucleated Red Blood Cells % 0 %; Platelet Count 152 10^3/uL (130-400); Red Blood Cell Count 4.25 10^6/uL (4.20-5.40); Red Cell Dist. Width 11.9 % (11.5-14.5); White Blood Cell Count 8.3 10^3/uL (4.8-10.8)
[2025-01-16] VITALS (35 sets, daily range): BP systolic 103–194; BP diastolic 45–111; BMI 27.9
[2025-01-16 00:14] LABS: ALT (SGPT) 16 U/L (0-35); AST (SGOT) 25 U/L (14-36); Albumin 3.8 g/dl (3.5-5.0); Alkaline Phosphatase 92 U/L (38-126); Blood Urea Nitrogen 16 mg/dl (7-17); Calcium 8.9 mg/dl (8.4-10.2); Carbon Dioxide 28 mmol/L (22-30); Chloride 100 mmol/L (98-107); Glucose 115 mg/dl (70-99); Potassium 3.6 mmol/L (3.5-5.1); Sodium 134 mmol/L (135-145); Total Protein 6.7 g/dl (6.3-8.2); eGFR > 60.00
--- NOTE | 2025-01-16 02:31 | ED.GENMED ---
History of Present Illness
General
Chief Complaint: Visual Problem
Source: patient, spouse and previous hospital records (Recent overnight hospitalization January 13 to January 14. Patient underwent TAVR procedure.)
Exam Limitations: none
Time Seen by Provider: 01/16/25 02:17
Nursing documentation reviewed up to this point in time: agreed with
History of Present Illness
History of Present Illness:
This is a 79-year-old woman with history of CAD, hypertension, hyperlipidemia, severe aortic stenosis who underwent TAVR January 13, was discharged to home January 14. On postop day 1 she was noted to have a new left bundle branch block and thus
atenolol was discontinued. Her usual dose of atenolol was 25 mg in the a.m., 50 mg in the p.m.
Since discharge home she has been feeling quite well until tonight around 10 PM while watching TV she began to feel flushed, developed a frontal headache and when she closed her eyes she noticed flashing lights in bilateral eyes. Flashing lights
was only noticed when she closed her eyes. She denies vision loss nor vision difficulty, no weakness nor numbness, no chest pain or palpitations. She was noted to have low-grade fever of 99.5 �F and she checked her blood pressure multiple times
and each time it seemed to trend up to 180 systolic. She laid down in bed but symptoms persisted with flushing, generalized aches, frontal headache and flashing lights in her eyes when her eyes were closed, upon attempting to stand she sat up
quickly and became dizzy, nauseous and vomited 1 time. No loss of consciousness and since vomiting patient is now feeling markedly improved with resolution of symptoms.
No history of similar episodes in the past.
Past History
Past History
ED Past Medical History: CAD, HTN, Hypercholesterolemia, Valvular disease, Psychiatric, Other (Rheumatoid arthritis, mitral valve prolapse, GERD, macular degeneration) and Other (Borderline diabetes)
ED Past Surgical History: Cardiac (TAVR January 13, 2025 PTCA with stent), and Orthopedic (Right hip replacement)
Social History
Tobacco: Non-smoker
Alcohol: None
Personal:
Living: with family
Employment: Retired
Family History
Family History: Other (Noncontributory)
Phy Exam
Physical Exam
Physical Exam:
GENERAL: 79-year-old woman appears her stated age, bright and alert, pleasant, appears in no acute distress. is accompanying. She is afebrile. Blood pressure currently 145/55
EYE: pupils equal and reactive. Extraocular muscles intact. Anicteric
NECK: Supple, nontender, no meningismus, no significant adenopathy.
ENT: oral mucosa is moist. No rhinorrhea.
CARDIAC: Regular rate and rhythm. no murmur.
LUNGS: Clear breath sounds bilaterally, no acute respiratory distress, no wheezes/rales/rhonchi
ABDOMEN: Soft, nondistended, without focal tenderness, no r/g, no cvat. normoactive BS.
NEUROLOGICAL: Alert and oriented x3, no focal neuro deficits. Gait is steady.
SKIN: Warm and dry, normal color, skin intact. No rash.
MUSCULOSKELETAL: No C/C/E. peripheral pulses are full and equal b/l. No palpable tenderness.
PSYCH: Normal and appropriate interaction.
Course
Orders/Labs/Results
Orders:
Orders
01/15/25 23:29
Electrocardiogram (*1) Urgent
Reason for Study: Hypertension, Benign
EKG- Treatment ONCE
01/15/25 23:41
CMP [Comprehensive Metabolic Panel] Urgent
Complete Blood Count/With Diff Urgent
01/16/25 02:31
CT Head W/o Iv Contrast Urgent
Comment:
Reason For Exam: acute headache, dizziness, nausea
01/16/25 03:51
Atropine Sulfate [Atropine 0.1 mg/ml Syringe] 1 mg .ROUTE .ST-MED ONE
01/16/25 03:56
Atropine Sulfate [Atropine 0.1 mg/ml Syringe] 0.5 mg IV NOW STA
01/16/25 04:55
Lidocaine HCl/Pf [Xylocaine-Mpf 1% Vial] 100 mg .ROUTE .STK-MED ONE
01/16/25 04:57
Heparin 1000 Units/500 ml [Heparin] 1,000 units in 500 ml .ROUTE .STK-MED
01/16/25 04:58
Heparin Sodium,Porcine/Ns/Pf [Heparin 2000 Units/1000 ml] 2,000 unit in 1,000 ml .ROUTE .STK-MED
Chest X-ray Portable [CR Chest Portable - 1 View] Urgent
Comment:
Reason For Exam: HYPOXIA
Reason Study Needs to be Portable: Patient Unstable
01/16/25 05:02
Code Status As Directed
Resuscitation Status: Full Code
Pneumatic Compression Sleeves As Directed
Type: Knee high
01/16/25 05:03
Admit Patient As Directed
Co-Sign Provider:
Level of Care: Inpatient admission
Assign to:: CVICU
Physician / Group: Christophe thornton
Diagnosis: CHB
Reason for Hospitalization: Complete heart block
Expected length of stay greater than two midnights?: Yes
ELOS- Estimated Length of Stay in days: 4
I certify the patient meets the requirements for IP care: Yes
Campaign Coordinator Procedure As Directed
Cardiac Cath Procedure: cardiac catheterization
Notify MD As Directed
Notify physician if: immediately for chest pain or bleeding from access site(s)
Vital Signs As Directed
Frequency: Other
Additional Instructions:: on arrival, Q15min x4, Q30min x2, Q1 hr x2, Q2 hr x2, then Q4 hr or per unit
protocol
01/16/25 05:04
PRN Pain Medication Management As Directed
May give lesser potent ordered pain med per pt: Yes
preference::
Protocol:: Medication orders for pain may be administered in a
manner that supports deferring to patient preference
when the pt is:
- Requesting an ordered lesser potent pain medication.
Least to most potent pain medications are defined
as: acetaminophen < NSAID < tramadol < opioids
(morphine, oxycodone, hydromorphone).
- Requesting a lesser dose of the same medication IF
ORDERED.
- Requesting a less intrusive route of administration
if both routes are prescribed by the provider (PO <
IV).
01/16/25 05:05
DX Deep Vein Thrombosis Video Routine
01/16/25 05:07
Fentanyl Citrate/Pf [Sublimaze] 100 mcg .ROUTE .STK-MED ONE
Midazolam HCl [Versed] 2 mg .ROUTE .STK-MED ONE
01/16/25 Breakfast
NPO
Allow oral meds: Yes
Allow clear liquids: Sips of Clears
NPO with Ice Chips: Yes
Site Checks Q1
Check access site for bleeding/hematoma: Yes
Comment: on arrival, Q15min x4, Q30min x2, Q1 hr x2, Q2 hr x2, Q4 hr or per
protocol
01/16/25 07:00
Site Checks Q1
Check access site for bleeding/hematoma: Yes
Comment: on arrival, Q15min x4, Q30min x2, Q1 hr x2, Q2 hr x2, Q4 hr or per
protocol
01/16/25 08:00
Site Checks Q1
Check access site for bleeding/hematoma: Yes
Comment: on arrival, Q15min x4, Q30min x2, Q1 hr x2, Q2 hr x2, Q4 hr or per
protocol
01/16/25 09:00
Site Checks Q1
Check access site for bleeding/hematoma: Yes
Comment: on arrival, Q15min x4, Q30min x2, Q1 hr x2, Q2 hr x2, Q4 hr or per
protocol
01/16/25 10:00
Site Checks Q1
Check access site for bleeding/hematoma: Yes
Comment: on arrival, Q15min x4, Q30min x2, Q1 hr x2, Q2 hr x2, Q4 hr or per
protocol
01/16/25 11:00
Site Checks Q1
Check access site for bleeding/hematoma: Yes
Comment: on arrival, Q15min x4, Q30min x2, Q1 hr x2, Q2 hr x2, Q4 hr or per
protocol
01/16/25 12:00
Site Checks Q1
Check access site for bleeding/hematoma: Yes
Comment: on arrival, Q15min x4, Q30min x2, Q1 hr x2, Q2 hr x2, Q4 hr or per
protocol
01/16/25 13:00
Site Checks Q1
Check access site for bleeding/hematoma: Yes
Comment: on arrival, Q15min x4, Q30min x2, Q1 hr x2, Q2 hr x2, Q4 hr or per
protocol
01/16/25 14:00
Site Checks Q1
Check access site for bleeding/hematoma: Yes
Comment: on arrival, Q15min x4, Q30min x2, Q1 hr x2, Q2 hr x2, Q4 hr or per
protocol
01/16/25 15:00
Site Checks Q1
Check access site for bleeding/hematoma: Yes
Comment: on arrival, Q15min x4, Q30min x2, Q1 hr x2, Q2 hr x2, Q4 hr or per
protocol
01/16/25 16:00
Site Checks Q1
Check access site for bleeding/hematoma: Yes
Comment: on arrival, Q15min x4, Q30min x2, Q1 hr x2, Q2 hr x2, Q4 hr or per
protocol
01/16/25 17:00
Site Checks Q1
Check access site for bleeding/hematoma: Yes
Comment: on arrival, Q15min x4, Q30min x2, Q1 hr x2, Q2 hr x2, Q4 hr or per
protocol
01/16/25 18:00
Site Checks Q1
Check access site for bleeding/hematoma: Yes
Comment: on arrival, Q15min x4, Q30min x2, Q1 hr x2, Q2 hr x2, Q4 hr or per
protocol
01/16/25 19:00
Site Checks Q1
Check access site for bleeding/hematoma: Yes
Comment: on arrival, Q15min x4, Q30min x2, Q1 hr x2, Q2 hr x2, Q4 hr or per
protocol
01/16/25 20:00
Site Checks Q1
Check access site for bleeding/hematoma: Yes
Comment: on arrival, Q15min x4, Q30min x2, Q1 hr x2, Q2 hr x2, Q4 hr or per
protocol
01/16/25 21:00
Site Checks Q1
Check access site for bleeding/hematoma: Yes
Comment: on arrival, Q15min x4, Q30min x2, Q1 hr x2, Q2 hr x2, Q4 hr or per
protocol
01/16/25 22:00
Site Checks Q1
Check access site for bleeding/hematoma: Yes
Comment: on arrival, Q15min x4, Q30min x2, Q1 hr x2, Q2 hr x2, Q4 hr or per
protocol
01/16/25 23:00
Site Checks Q1
Check access site for bleeding/hematoma: Yes
Comment: on arrival, Q15min x4, Q30min x2, Q1 hr x2, Q2 hr x2, Q4 hr or per
protocol
Abnormal Lab Results
01/15/25
23:41
Absolute Monos (auto) 1.3 H 10^3/uL
(0.1-0.6)
Lymphocytes % 20.0 L %
(20.5-51.1)
Monocytes % 15.4 H %
(1.7-9.3)
Sodium 134 L mmol/L
(135-145)
Creatinine 0.5 L mg/dL
(0.6-1.0)
Glucose 115 H mg/dl
(70-99)
01/15/25 23:41
01/15/25 23:41
Vital Signs
Initial and Last Documented VS:
Initial Vital Signs
Temp Pulse Resp BP Pulse Ox
99.2 F 100 20 150/68 95
01/15/25 23:23 01/15/25 23:23 01/15/25 23:23 01/15/25 23:23 01/15/25 23:23
Last Documented Vital Signs
Temp Pulse Resp BP Pulse Ox
98.7 F 82 19 135/83 97
01/16/25 06:25 01/16/25 07:30 01/16/25 07:30 01/16/25 07:30 01/16/25 07:30
MDM/Problems Addressed
Differential Diagnosis Includes:
Concern for postop fever, postop infectious process, migraine headache, concern for arrhythmia, TIA/CVA, symptomatic accelerated hypertension, concern for withdrawal symptoms from abrupt discontinuation of beta-geovanny 1 and half days ago.
Currently asymptomatic, afebrile. Blood pressure at patient's baseline.
No focal neurodeficits.
Labs are unremarkable.
Monitor shows normal sinus rhythm and EKG similar and unchanged from previous.
Will check CT of the head.
Will continue groover and turner.
Chronic conditions affecting care: HTN, CAD and Other (Recent TAVR)
*Radiology
Radiology exam reviewed: radiology read reviewed (CT of the head is unremarkable)
*Pulse Oximetry
Patient hypoxic: no
*Critical Care Note
Total Time (30-74mins, 75-104mins- exclusive of procedures): 30
comment:
Critical care statement: A total of 30 minutes of critical care time was provided for this patient. This includes management of unstable vital signs, evaluation of the patient at bedside, reviewing the patient's pertinent medical records, discussion
with consultants, review of old EKGs and review of pertinent medical records. This time with separate from time utilized to perform the aforementioned documented procedures
Update Note
Update Note:
04:00
Urgent call to bedside for pt with return of symptoms she was experiencing at home. states patient had brief episode of unresponsiveness, brief shaking. She is now awake but overall not feeling well with intermittent nausea and cardiac
monitor shows AV villa block with intermittent prolonged episodes of sinus beats with complete AV villa blockade.
After 0.5 mg of IV atropine, AV blockade has resolved and patient remains hemodynamically stable.
External pacemaker pads are in place.
Urgent call does CVICU PA who is now at bedside.
Plan for call to EP for pacemaker placement.
04:45
Patient remains comfortable without return of AV block. Monitor shows normal sinus rhythm.
She has however developed some intermittent hypoxia with pulse ox dropping into the 80s however she continues to deny shortness of breath, no cough and overall well in appearance without cyanosis nor pallor.
Nasal cannula oxygen in place.
Lungs are clear to auscultation. No JVD.
Will check portable chest x-ray.
Awaiting Campaign Coordinator team arrival for planned transvenous pacemaker insertion.
ED Attending Note
-
Portions of this chart may have been created with voice recognition software.� Occasional wrong word or��sound alike� substitutions may have occurred due to the inherent limitations of voice recognition software.
Discharge Plan
Departure
Patient Disposition: Admit
Date of Disposition: 01/16/25
Time of Disposition: 04:32
Admit to: CVICU
Admit to doctor: Robert Thornton
Presentation/result/management discussed w/ accepting MD/DO: CT surgery
Discharge Problem:
AV villa block
Interventions
Interventions:
*Risk Screen - Suicide Last Done: 01/15/25 23:23
*General Assessment Last Done: 01/16/25 04:01
*Neglect/Abuse Screening Last Done: 01/15/25 23:23
*ED COVID-19 Vaccine History Last Done: 01/16/25 04:01
*Nursing Disposition Last Done: 01/16/25 05:25
ED- Neurological Assessment Last Done: 01/16/25 01:40
ED-EENT Assessment Last Done: 01/16/25 04:00
ED Swallowing Screen Last Done: 01/16/25 04:00
Discharge Date and Time
Discharge Date/Time: 01/16/25 05:25
[2025-01-16] MEDS: ATROPINE 0.1 MG/ML SYRINGE 0.5 MG IV (04:00)
--- NOTE | 2025-01-16 05:02 | ITS.CL.PN ---
Unloading Checker - Procedure Note
Procedure
Procedure Note:
TRANSVENOUS PACEMAKER REPORT
�
Date of Procedure: January 16, 2025
�
Referring: [place] emergency department
�
PROCEDURES:
1. Placement of a temporary transvenous pacemaker via right internal jugular vein.
2. Ultrasound-guided access
�
INDICATION: Symptomatic high-grade AV block status post recent transcatheter aortic valve replacement
�
ACCESS: Right internal jugular vein, 6 [place]orran sheath, under ultrasound guidance
Ultrasound was utilized for vascular access. The right IJ vein was visualized under ultrasound, and the vessel was patent. An image was stored permanently in the patient's medical record. Under direct ultrasound guidance, a 6 [place]orran sheath was
inserted into the vein using a micropuncture kit through a modified Seldinger technique.
�
PROCEDURE DETAIL: Under fluoroscopy guidance, we successfully advanced a balloon-tipped temporary transvenous pacemaker into the RV. We subsequently checked thresholds to confirm capture. Threshold was at 1 mA. Once capture was confirmed, the
temporary transvenous pacemaker was set to a heart rate backup of 60 bpm, threshold of 20 mA
�
SEDATION: 24 minutes of procedural sedation was utilized. An independent medical videographer was present to assist with and help manage the patient's level of consciousness and physiologic status.
RADIATION SUMMARY: Fluoro Time (min): 0.8, Dose (mGy): 5.89, DAP (Gy.cm2) : 0.81
�
CONCLUSIONS
1. Successful placement of a temporary transvenous pacemaker via right internal jugular vein
�
RECOMMENDATIONS
1. Chest x-ray post temporary transvenous pacemaker to assess placement and rule out pneumothorax.
2. Plan for likely permanent pacemaker on Friday, January 17, 2025
Jaye Hartley MD, [facility], [facility]
�
Copy to: Tomas Romero MD, Linda Mckeon MD, Robert Thornton MD
�
�
�
�
�
�
--- NOTE | 2025-01-16 05:27 | HPS.HSE ---
Family Physician
-
Family Physician: Linda Obregon
Chief Complaint
-
Dizziness and near syncope
History of Present Illness
Mary Jane Swanson is a very pleasant 79-year-old female with a history of severe POD #3 TAVR with Evolute Fx Plus [address] Thornton discharged on ASA/clopidogrel, RBBB, CAD s/p PCI to LAD/LCx, RA, HTN, macular degeneration who presented late
yesterday evening to the emergency department with her for episodes of dizziness. Of note patient was recently admitted on 01/13/2025 for a transcatheter aortic valve replacement with Dr. Thornton. No intraoperative events however on postop
day 1 her morning EKG showed a new left fascicular bundle branch block without significant pauses or bradycardia. Repeat TTE showed a peak gradient of 25 mmHg and mean gradient of 12 mmHg. She was discharged with a manager cardiac cath and her atenolol
was held. Yesterday evening she reported to her that she felt episodes of flushing, dizziness, and visual changes. The episodes were becoming more frequent prompting presentation to the emergency department. While in the emergency
department it was observed that she had multiple episodes of bradycardia with intermittent complete heart block. During one of these episodes her reports that she became briefly unresponsive. She received 1 mg of atropine in the emergency
department without significant improvement however did have spontaneous return of sinus rhythm. Pacer pads are applied but she does not currently require transcutaneous pacing. I was requested to come down to the emergency department to assist
with management. On my assessment Mrs. Swanson is awake and conversive but appears anxious. She currently denies any chest pain, shortness of breath, nausea, vomiting. She currently did not report any dizziness or flushing or vision changes.
Medical History
Past Medical History
Past Medical History: Reports Other
Additional Past Medical History:
severe status post TAVR with Evolute Fx Plus 26 mm valve, CAD s/p PCI to LAD/LCx, RA, HTN, macular degeneration
Past Surgical History: Reports Other
Additional Past Surgical History:
as above
Social History
Unable to obtain full social history at this time due to: Acuity
Family History
Family History: Not pertinent
Allergies / Home Medications
Allergies reflects when Allergies were last updated in [facility].
Home Medications with original date entered in [facility]
Allergy/Medication List:
adhesive tape
Review of Systems
-
A 12 point ROS was completed and negative except as noted: Yes
EENT: Reports See HPI
Cardiac: Reports See HPI and Syncope
Neurological: Reports See HPI and Dizzy
Physical Exam
Vital Signs
Vital Signs
Temp Pulse Resp BP Pulse Ox
99.2 F 94 16 144/64 94
01/15/25 23:23 01/16/25 04:45 01/16/25 04:45 01/16/25 04:45 01/16/25 05:08
Physical Exam
General: Well Developed, Well Nourished and Conversant
HEENT: NormoCephalic, Anicteric, Moist mucous membranes, PERRLA and Neck Nontender
Respiratory: Clear and Non Labored Respirations
Cardiac: S1/S2, Regular Rhythm and Murmur
Breast: Deferred by me
GI: Soft, Non Tender, Non Distended and Normal Bowel Sounds
Genito-urinary: Deferred by me
Musculoskeletal: No Clubbing and No Cyanosis
Skin: Warm and Dry
Neuro: Awake, Alert, AO x 3, No Motor Deficits and Nonfocal/grossly intact
Hematologic/Lymphatic: No Lymphadenopathy
Psych: Anxious
Laboratory Results
-
01/15/25 23:41
01/15/25 23:41
Laboratory Results
Total Bilirubin 1.0 mg/dl (0.2-1.3) 01/15/25 23:41
AST 25 U/L (14-36) 01/15/25 23:41
ALT 16 U/L (0-35) 01/15/25 23:41
Alkaline Phosphatase 92 U/L (38-126) 01/15/25 23:41
Data Reviewed
-
Critical Care Time (in minutes): 55
Diagnostic Radiology: Image Personally Visualized and interpreted
Lab Data: Labs Reviewed by me and Discussed with Physician
Old Records: Reviewed
Impression/Plan
-
IMPRESSION:
Mary Jane Swanson is a very pleasant 79-year-old female with a history of severe POD #3 TAVR with Evolute Fx Plus [address] Thornton discharged on ASA/clopidogrel, RBBB, CAD s/p PCI to LAD/LCx, RA, HTN, macular degeneration who presented late
yesterday evening to the emergency department with her for episodes of dizziness. Postoperative course was complicated by a new LAFB on top of her baseline RBBB without bradycardia or pauses. She now presents with intermittent complete
heart block and symptomatic bradycardia
Symptomatic bradycardia
Complete heart block
Mitral valve prolapse without mitral regurgitation
CAD status post PCI
Hypertension
GERD
Macular degeneration
Rheumatoid arthritis
PLAN:
Case discussed in real-time with Dr. Thornton, interventional cardiology Dr. Hartley, cardiology Dr. Don. Plan for emergent temporary transvenous pacer with plan for EP consult and planning for PPM. Keep pacer pads attached to patient while en
route to Operational Assistant. at bedside and in agreement with plan. Admit to CVICU under CT surgery service thereafter.
--- NOTE | 2025-01-16 07:41 | PTCARENOTE ---
Received patient for 7a-7p shift. Pt AAOx3, without complaints. TVPM wire to R IJ, VVVI hr60/mA20. SR w BBB on cardiac exercise specialist, hr 74. VSS. Neuro checks wnl. Pt maintained on bed rest. Purewick in place, voiding clear yellow urine. Patient denies
pain at this time. R forearm arm with scattered petechiae noted. Instructed patient to call for assistance prior to getting out of bed. Patient verbalized understanding, call camacho in reach. Will continue to monitor.
[2025-01-16] MEDS: PROTONIX 40 MG PO (09:00)
[2025-01-16] MEDS: ASPIR LOW (ENTERIC COATED) 81 MG PO (09:00)
[2025-01-16] MEDS: NORVASC 10 MG PO (09:00)
[2025-01-16] MEDS: THERAGRAN 1 TABLET PO (09:00)
[2025-01-16] MEDS: OSCAL 500 + D 500 MG PO ×2 (09:01→19:53)
--- NOTE | 2025-01-16 09:30 | W.PN.UPDATE ---
Update Note
Progress Note Update
CARDIAC SURGERY ATTENDING:
Doing well s/p readmit for bradycardia w/ urgent placement of temporary TV pacer via R IJ
Will require PPM
D/W EP
[2025-01-16] MEDS: VITAMIN D3 (cholecalciferol) PO (10:00)
--- NOTE | 2025-01-16 10:12 | CON.CAR ---
Consultation
Consultation Request
Date/Time Consultation Requested: January 16, 2025 4 AM
Date/Time Consultation Performed: January 16, 2025 10 AM
Requesting Provider: CT surgery
Performing Provider: David Don
Reason for Consultation: Complete heart block
Medical History
-
Chief Complaint: Dizziness near syncope
History of Present Illness:
79-year-old female with history of severe status post TAVR 3 days ago CAD status post PCI, macular degeneration who is here after an episode of dizziness and feeling she was going to pass out. She does have a known bifascicular block and in the
perioperative period did not have any significant pauses or bradycardia on telemetry. However, yesterday she had flushing, dizziness, and visual changes which led her to be evaluated in the emergency room. She was then found to have intermittent
complete heart block and a significant pause. She received atropine in the emergency room. She was then taken for emergent temporary pacemaker.
Past Medical History
Past Medical History: Other (severe status post TAVR with Evolute Fx Plus 26 mm valve, CAD s/p PCI to LAD/LCx, RA, HTN, macular degeneration)
Past Surgical History: Other (tavr pci )
Social History
Tobacco: Non-Smoker
Alcohol: None
Drug: None
Personal:
Living: With Family
Employment: Retired
Family History
Family History: Reviewed & Not Pertinent
Allergies / Home Medications
Allergy/AdvReac Type Severity Reaction Status Date / Time
adhesive tape Allergy Unknown Verified 01/15/25 23:28
No Known Drug Allergies Allergy Unknown Verified 01/04/25 10:05
�Medication �Instructions �Recorded �Confirmed �Type
amlodipine 10 mg tablet 10 mg PO DAILY 10/29/24 01/16/25 History
escitalopram oxalate 10 mg tablet 10 mg PO HS 10/29/24 01/16/25 History
leflunomide 10 mg tablet 10 mg PO DAILY 10/29/24 01/16/25 History
vitamins A,C,L-dste-sdspvr 2,148 1 tab PO BID 10/29/24 01/16/25 History
mcg-113 mg-45 mg-17.4 mg tablet
(PreserVision AREDS)
clopidogrel 75 mg tablet 75 mg PO DAILY #90 tabs 11/30/24 01/16/25 Rx
pantoprazole 40 mg tablet,delayed 40 mg PO DAILY #90 tabs 11/30/24 01/16/25 Rx
release
rosuvastatin 10 mg tablet 10 mg PO HS 11/30/24 01/16/25 History
aspirin 81 mg tablet,delayed 81 mg PO DAILY 01/04/25 01/16/25 History
release
calcium 600 mg (as 1 tab PO BID 01/04/25 01/16/25 History
carbonate)-vitamin D3 5 mcg (200
unit) tablet
cholecalciferol (vitamin D3) 50 50 mcg PO DAILY 01/04/25 01/16/25 History
mcg (2,000 unit) capsule (Vitamin
D3)
gabapentin 300 mg capsule 300 mg PO HS 01/04/25 01/16/25 History
outjnlxyzgbk-eqodjqho-hjtmke tablet 1 tab PO DAILY 01/04/25 01/16/25 History
Review of Systems
-
All other systems: Negative unless noted
Physical Exam
Vital Signs
Temp Pulse Resp BP Pulse Ox
98.2 F 69 13 134/63 96
01/16/25 08:00 01/16/25 09:15 01/16/25 09:15 01/16/25 09:00 01/16/25 09:50
Lab Results
01/15/25 23:41
01/15/25 23:41
Physical Exam
General: Well Developed, Well Nourished and No Apparent Distress
HEENT: Normocephalic
Respiratory: Clear and Non Labored Respirations
Cardiac: S1/S2 and Regular Rhythm
GI: Soft
Musculoskeletal: No Cyanosis and No Edema
Skin: Warm and Dry
Neuro: AO x 3
Hematologic/Lymphatic: No Lymphadenopathy
Psych: Calm
Impression / Plan
-
79 year old woman with past medical history of severe POD1 status post TAVR with Evolute Fx Plus 26 mm valve, CAD s/p PCI to LAD/LCx, RA, HTN, macular degeneration. She has now CHB and will require PPM.
# s/p TAVR
- cont asa
# RBBB LAFB and now CHB
- NPO after midnight
- PPM tomorrow
# CAD s/p PCI LAD/LCx
- cont. ASA/plavix, statin
- PPI
# HTN
- cont. norvasc while holding atenolol
Data Reviewed
-
EKG: Tracing Personally Visualized and interpreted (sr, paced, CHB)
Medical Tests (Nuc Med, Echo etc): Image Personally Visualized and interpreted and Report Reviewed by me
Labs: Labs Reviewed by me
Total Time Spent with Patient (in minutes): 31
--- NOTE | 2025-01-16 12:22 | PTCARENOTE ---
Patient reassessed, assessment unchanged from previous. TVPM via R IJ maintained to pacer box, VVI hr 60/mA 20. VSS, SR with 1st degree hb, BBB, occasional V Pacing on cardiac rehabilitation specialist. VSS, Neuro checks wnl. Medications administered as ordered. Pt
denies pain at this time. Purewick in place, pt voiding clear yellow urine. Tolerating po intake without issues. Pt maintained on bed rest, call camacho in reach. IS up to 1500, encouraged. Will continue to monitor.
[2025-01-16] MEDS: PLAVIX 75 MG PO (14:13)
--- NOTE | 2025-01-16 15:09 | PTCARENOTE ---
Patient reassessed, assessment unchanged from previous. AAOx3, without complaints. Neuro checks wnl. TVPM via R IJ intact, Vpaced on cardiac nurse. VSS, pt denies pain at this time. [facility] with 1 person assist, +BM. Patient
maintained on bedrest. Will continue to monitor.
--- NOTE | 2025-01-16 20:00 | PTCARENOTE ---
report received from previous RN, walking rounds done. VSS. pt in bed, AAOx4. pt denies any pain. RIJ TVP intact set to VVI 60, mA 20. pt 100% V.paced on monitor. B/L radial and DP pulses palpable, heart tones clear. B/L breath sounds present. POX
96% on room air. skin CDI. PIV x2 intact and patent. see worklist for full assessment, VS, and interventions. pt resting comfortably w call camacho in reach.
[2025-01-16] MEDS: NEURONTIN 300 MG PO (21:51)
[2025-01-16] MEDS: CRESTOR 10 MG PO (21:51)
[2025-01-16] MEDS: LEXAPRO 10 MG PO (21:51)
[2025-01-17] VITALS (15 sets, daily range): BP systolic 109–145; BP diastolic 41–68; BMI 27.8
--- NOTE | 2025-01-17 | PTCARENOTE ---
no acute changes in assessment, VSS. V.paced on monitor via TVP. POX 97% on room air. pt sleeping between care.
--- NOTE | 2025-01-17 04:40 | PTCARENOTE ---
no changes in assessment, VSS. V.paced. POX 98% on room air. AM labs drawn and sent. pt sleeping between care.
[2025-01-17 05:00] LABS: INR 1.09; PT 14.5 Sec (11.4-14.6)
[2025-01-17 05:01] LABS: APTT 25.5 Sec (23.4-35.0)
[2025-01-17 05:06] LABS: Hematocrit 36.1 % (37.0-47.0); Hemoglobin 12.2 g/dL (12.0-16.0); Mean Corp Hgb Conc. 33.8 g/dL (33.0-37.0); Mean Corpuscular Hgb 30.1 pg (27.0-31.0); Mean Corpuscular Volume 89.1 fL (81.0-99.0); Mean Platelet Volume 10.2 fL (7.4-10.4); Platelet Count 156 10^3/uL (130-400); Red Blood Cell Count 4.05 10^6/uL (4.20-5.40); Red Cell Dist. Width 12.1 % (11.5-14.5); White Blood Cell Count 7.8 10^3/uL (4.8-10.8)
[2025-01-17 05:15] LABS: Blood Urea Nitrogen 11 mg/dl (7-17); Carbon Dioxide 32 mmol/L (22-30); Chloride 104 mmol/L (98-107); Estimated Creatinine Clearance 76 ml/min; Glucose 126 mg/dl (70-99); Magnesium 2.1 mg/dl (1.6-2.3); Potassium 3.5 mmol/L (3.5-5.1); Sodium 139 mmol/L (135-145); eGFR > 60.00
--- NOTE | 2025-01-17 05:39 | W.PN.CT ---
Today's Communication / Plan
-
-No overnight events. Remains intermittently pacer dependent, VVI 20 mA rate 60
-NPO for PPM eval today
-holding atenolol
-continue amlodipine, ASA, Plavix, Crestor, Protonix, Lexapro
Assessment / Plan
-
- Severe symptomatic - s/p L TF TAVR w/ placement of 26mm EVOLUT FX+ on 01/13/25, pod #4
- Post-TTE: no AI/PVL, mean gradient 6mmHg
Readmitted 01/16 with CHB s/p RIJ TVP
- CHB
- CAD s/p recent PCI/stenting- on ASA and Plavix preop
- Pre-existing RBBB
- Post op LAFB
- MV prolapse, no sig MR
- RA
- HTN/HLD
- GERD
- Asthma
- Macular degeneration
- Mod-large hiatal hernia
- <4 mm pulmonary nodues
Subjective
-
Date of Service: January 17, 2025
Objective Data
-
Lab Results
01/17/25 04:38
01/17/25 04:38
PT 14.5 Sec (11.4-14.6) 01/17/25 04:38
INR 1.09 01/17/25 04:38
APTT 25.5 Sec (23.4-35.0) 01/17/25 04:38
Vital Signs
Vital Signs
Temp Pulse Resp BP Pulse Ox
97.9 F 63 25 121/41 97
01/17/25 00:00 01/17/25 02:00 01/17/25 01:30 01/17/25 02:00 01/17/25 00:00
CT Intake/Output/Weight
01/16/25 01/16/25 01/17/25
06:59 18:59 06:59
Intake Total 480 / 480
Output Total 600 / 600
Balance -120 / -120
SaO2: 97
Physical Exam
-
General: Awake, Oriented and AOx3
Cardiovascular: Regular rate & rhythm, No Murmurs and No Gallop
Respiratory: Clear and Equal
Extremities: No Edema and No Erythema
Data Reviewed
-
Lab Results: Results Reviewed
Medications: Active Meds Reviewed
Chest X-Ray: Report Reviewed
ECG: Report Reviewed
[2025-01-17] MEDS: KCL 40 MEQ PO (06:06)
--- NOTE | 2025-01-17 07:36 | PTCARENOTE ---
Received pt from craft superintendent RN; Pt AAOx3; 100% V paced on monitor and VSS; RIJ temp pacing wire, and PIV x2 all patent; Lungs diminished; positive bowel sounds; pt voiding clear yellow urine; palpable pulses throughout; no edema noted; B/L groins
ecchymotic from post TAVR; see nursing documentation for further details.
[2025-01-17] MEDS: PLAVIX 75 MG PO (08:10)
[2025-01-17] MEDS: ASPIR LOW (ENTERIC COATED) 81 MG PO (08:10)
--- NOTE | 2025-01-17 08:35 | PTCARENOTE ---
Report given to slab off mill tender RN; KAYLA wipes and leads changed; pt sent to hatchery laborer via bed.
--- NOTE | 2025-01-17 08:43 | W.PN.CD ---
Today's Communication / Plan
-
- PPM today
Impression / Plan
-
79 year old woman with past medical history of severe POD1 status post TAVR with Evolute Fx Plus 26 mm valve, CAD s/p PCI to LAD/LCx, RA, HTN, macular degeneration. She has now CHB and will require PPM.
# CHB
- Post TAVR s/p temp wire in place from right jugular.
- Plan for PPM today
- OK to give ASA and Plavix.
-Given RV pacing from the temp wire, will hold amlodipine until permanent pacer is in place.
# s/p TAVR
- cont asa
# RBBB LAFB and now CHB
- NPO after midnight
- PPM tomorrow
# CAD s/p PCI LAD/LCx
- cont. ASA/plavix, statin
- PPI
# HTN
- cont. norvasc while holding atenolol
Physical Exam
Vital Signs/Labs
Vital Signs
Temp Pulse Resp BP Pulse Ox
98.5 F 66 25 145/64 98
01/17/25 08:00 01/17/25 08:00 01/17/25 08:00 01/17/25 08:00 01/17/25 08:38
01/16/25 01/17/25 01/18/25
06:59 06:59 06:59
Actual Weight 73.8 kg 73.5 kg
01/17/25 04:38
01/17/25 04:38
PT 14.5 Sec (11.4-14.6) 01/17/25 04:38
INR 1.09 01/17/25 04:38
APTT 25.5 Sec (23.4-35.0) 01/17/25 04:38
Magnesium 2.1 mg/dl (1.6-2.3) 01/17/25 04:38
Physical Exam
Constitutional: No acute distress and Comfortable
EENT: Anicteric and Moist mucous membranes
Cardiovascular: Rhythm & rate is regular, Pedal edema is absent and JVD pressure is normal
Respiratory: Respiratory effort normal, Lungs clear to auscul. and Wheeze Absent
GI: Soft, Distention absent, Non tender and Normal bowel sounds
Neuro/Psych: Alert, Oriented and AO x 3
Other: Cath Site
Data Reviewed
-
Date of Service: January 17, 2025
Medical Decision Making: Reviewed Test Results, Test Interpretation and Review of Case with other Provider
EKG: Tracing Personally Visualized and interpreted
Echo: Report Reviewed by me
X-Ray/CT/US/MRI/NUC/PET: Image Personally Visualized and interpreted
Labs: Labs Reviewed by me
Old Records: Reviewed
Critical Care Time (in minutes): 35
--- NOTE | 2025-01-17 10:07 | ITS.CL.PACE ---
[employer] - Pacemaker Implant
Pacemaker Implant
Procedure Report:
Conduction system pacing Permanent Pacemaker Placement:
79 yrs old woman with s/p TAVR and complete heart block s/p temporary wire placement is in need for a PPM.
Indications:
Third degree heart block
Date of the Procedure:
01/17/25
Pre-Operative Diagnosis: Third degree heart block
Post-Operative Diagnosis: Third degree heart block
Procedure Performed: Conduction system pacing permanent pacemaker
Performing Physician:
Kathryn Castle MD
Anesthesia:
See anesthesia report.
Detailed Description of the Procedure:
The patient was identified using hospital identification and informed consent obtained for the procedure. The risks were explained to the patient and the family including, but not limited to: Bleeding, infection, arrhythmia, stroke,
vascular/cardiac/lung puncture, surgery, pacemaker dependency/device malfunction. All questions were answered.
A surgical pause was performed in accordance with hospital regulations. Anesthesia service provided sedation as reported separately. Antibiotics administered IV for risk of bacterial colonization. After obtaining informed and written consent, the
patient was brought to the electrophysiology laboratory.
The initial rhythm was RV paced rhythm.
The procedure site was meticulously prepared with surgical scrub and allowed to dry with no pooling. Sterile draping was applied to cover the procedure site. The image intensifier was draped with sterile bag and positioned over the patient.
A surgical pause and time out was performed immediately prior to the procedure with review of her medical history, recent labs, allergies and medications with site of procedure identified and consent noted in the chart. Antibiotics pre operatively
given. All team members concurred.
The left infraclavicular region was prepped and draped in the usual sterile fashion. Local anesthesia was administered subcutaneously using 1% lidocaine / Bupivacaine. The left cephalic vein cutdown was performed with an incision at the
delto-pectoral groove, and vascular sheath was introduced for lead access.
A subcutaneous pocket was created with blunt dissection and use of electrocautery. Hemostasis was excellent.
The guide wire was advanced to the RA and was advanced to the RV. The preformed curved long hemostatic peel away HIS sheath was advanced into the RV cavity. A left bundle pacing wire was advanced into the sheath to the tip with ventricular signals
noted with unipolar manner.
The HIS location was identified under guidance of the fluoroscopy and the pacing wire signals. The sheath with the pacing lead was moved deeper into the RV cavity on the septum at a more inferior and distal to the HIS signals.
There was sheath approximation confirmed on PRINCESS view. Once adequate signals were noted on the electrograms of the pacing lead in the sheath with W pattern signals on the RV septum, the lead was advanced and clockwise turns were done under
fluoroscopic guidance. The septum was engaged and the lead was paced intermittently after every 2-3 turns. The Impedance of the lead was measured that remained stable around 1000 Ohm. The lead was paced and septal pacing was noted. The sheath was
placed again to the septum and the lead was advanced 2-3 turns with pacing with each advancement. The ventricular capture was monitored throughout and the captures gradually changed from RV pacing to non-selective pacing to LBB pacing with R wave on
V1 morphology. �
The long guiding sheath was cut and removed from the RV without change in lead position, impedance, sensing, or capture. The lead was sutured to the underlying pectoralis fascia with 0-silk stitches.
Then the attention was given to atrial lead. Atrial active lead was placed in the RA and into the RAA. There were excellent impedance and thresholds.
The leads were attached to the pulse generator in standard configuration with acceptable sensing and threshold parameters. The pocket was irrigated with antibiotic solution; the pocket was inspected with no active bleeding noted. The device and the
leads were placed in the pocket.
The pocket was rinsed with antibiotics soaked solution. A Tyrx pouch was placed around the PPM and the leads.
Deep subcutaneous tissues were closed with three layers of 2-0 V loc sutures; and the dermis was reopposed using a running 4-0 VLoc subcuticular suture.
Sponge counts / sharp counts were appropriate.
Procedure End:
The procedure was tolerated well. Aquacel bandaged was applied.
Estimated Blood loss:
5 cc
Specimens Removed:
No cultures and no specimens were obtained. No intraoperative pathology was identified.
Urine output:
None
Packs / Drains/ Tubes:
None
Instrument / Sponge Count Correct:
Yes
Flouro time:
3.2min / 3.16 Gycm2
Complications of the Procedure:
None
Condition of Patient at Time of Transfer:
Hemodynamically stable with no neurological or vascular compromise.
Device information:�
Generator: i'mma; Model: W1DR01; Serial # [id number]�
����������� RA pacing lead: MediHandle; Model: 5076-45; Serial # [id number]
����������� Measured data on the RV lead was sensing of 4.5 mV, impedance of 475 ohms and threshold of 1.25 V at 0.4ms. �
����������� RV LBB pacing lead: i'mma; Model: 3830-69; Serial # [id number]
����������� Measured data on the RV lead was sensing of 17.3mV, impedance of 1140 ohms and threshold of 0.5 V at 0.4ms�
PROGRAMMING PARAMETERS:�
Jerzy parameter settings were DDDR 60-130 �
����������� Paced AV interval: 180ms
����������� Sensed AV interval: 150 ms.
����������� Rate Adaptive A-V Interval: on
����������� Mode switch ON
�
Summary:
Successful implantation of MRI compatible dual chamber conduction system pacing permanent pacemaker.
Results/Recommendations:
-Please follow up CXR�
1. Please provide patient with adequate pain control�
Instructions to be given to patient:�
- Please follow up with [facility] at [address] [place] [address] ([phone]) to get your wound checked in 2 weeks of your discharge. Then follow with
- Do not wet incision site until after it is evaluated at cardiology clinic. No baths or showers until then. Sponge baths / showers are OK but dab dry the dressing after it is wet.�
- Allow 'steri strips' to fall off on their own�
- Do not lift left elbow above shoulder, particularly with sudden jerking movements, for 1 month�
- Do not lift anything weighing more than 5 pounds with the left arm for 1 month�
- If you notice any fevers, shortness of breath, lightheadedness, chest pain, or worsening swelling in the wound site, please contact the arrhythmia clinic, contact your roll up operator, or present to the hospital for evaluation.�
Kathryn Castle MD
Electrophysiology
--- NOTE | 2025-01-17 10:08 | W.PN.UPDATE ---
Update Note
Progress Note Update
Patient is noted to have frequent PACs and PVCs and is off Atenolol since TAVR. Will start Toprol 50 mg QD and if hypotensive then can decrease Amlodipine to 5 mg QD.
Observe overnight with telemetry.
PPM implanted - CXR planned.
--- NOTE | 2025-01-17 10:44 | PTCARENOTE ---
Pt returned from PPM; Left arm immobilizer in place; EKG done and AV paced and VSS; family at bedside.
[2025-01-17] MEDS: PROTONIX 40 MG PO (10:54)
[2025-01-17] MEDS: NORVASC 10 MG PO (10:54)
[2025-01-17] MEDS: VITAMIN D3 (cholecalciferol) 50 MCG PO (10:55)
[2025-01-17] MEDS: OSCAL 500 + D 500 MG PO ×2 (10:55→19:25)
[2025-01-17] MEDS: THERAGRAN 1 TABLET PO (10:55)
[2025-01-17] MEDS: TOPROL XL 50 MG PO (10:55)
--- NOTE | 2025-01-17 11:42 | CM ---
Reviewed chart. Met with and Mrs. Swanson to review discharge plans. She states prior to admission she resides with her spouse in a spilt-level home without any steps to enter. She states she has four steps to get to kitchen/living room area
and seven steps to get to bedroom/full bathroom. She states prior to admission she was independent with ambulation and adls. She states she does not have any DME in the home. She states she was scheduled to see the Transitional Care Nurse but she
was re-admitted before the nurse could see her. Reviewed with the TCRN and the nurse will see her when she goes home from this hospitalization. She states she has a prescription plan and uses [facility]. Medical work-up in progress. The
discharge plan is to return home with her spouse and a home visit by the Transitional Care Nurse when medically stable.
--- NOTE | 2025-01-17 12:57 | PTCARENOTE ---
Assessment unchanged; V paced on monitor and VSS; at bedside.
[2025-01-17] MEDS: OCUVITE SOFTGEL 1 CAP PO (14:46)
--- NOTE | 2025-01-17 16:25 | PTCARENOTE ---
Assessment unchanged; V paced on monitor and VSS; pt resting comfortably in chair awaiting dinner.
[2025-01-17] MEDS: ANCEF 5 IV (18:27)
--- NOTE | 2025-01-17 18:44 | PTCARENOTE ---
Patient received from day shift RN; AAOx3, responds spontaneously to RN and follows commands; VSS; V-paced with AV pacing on monitor; +2 DP and radial pulses; SpO2 96-100% on RA; Lungs diminished at bases; Shallow respirations; IS 1250 ml;
Normoactive BS; Patient urinating clear, yellow urine in bathroom; Left chest wall aquacell with small amount of drainage, right neck puncture site covered with 4x4 and gauze - CDI; LUE in sling immobilizer; PIV x2 #20 LAC and #20 right forearm; See
nursing documentation for further information.
[2025-01-17] MEDS: NEURONTIN 300 MG PO (21:31)
[2025-01-17] MEDS: CRESTOR 10 MG PO (21:31)
[2025-01-17] MEDS: LEXAPRO 10 MG PO (21:31)
[2025-01-17] MEDS: TYLENOL 650 MG PO (22:11)
--- NOTE | 2025-01-17 23:30 | PTCARENOTE ---
received pt from previous rn. Pt AAOx4, VSS, 100% v paced per tele monitor, L PPM set DDDR 6/130, +pulses, pox 95-97% on RA lungs diminshed, occasional non-productive cough, voids appropriately in bathroom, +bs, L chest incision aquacell w/ scant
old drainage, R neck puncture intact, pivx2 intact, call camacho within reach.
[2025-01-18 00:11] VITALS: BP 130/62
[2025-01-18] MEDS: ANCEF 5 IV (02:16)
[2025-01-18 02:43] VITALS: BMI 28.0
[2025-01-18 03:06] VITALS: BP 142/66
[2025-01-18 03:22] LABS: Hematocrit 36.3 % (37.0-47.0); Hemoglobin 12.3 g/dL (12.0-16.0); Mean Corp Hgb Conc. 33.9 g/dL (33.0-37.0); Mean Corpuscular Hgb 29.8 pg (27.0-31.0); Mean Corpuscular Volume 87.9 fL (81.0-99.0); Mean Platelet Volume 9.7 fL (7.4-10.4); Platelet Count 152 10^3/uL (130-400); Red Blood Cell Count 4.13 10^6/uL (4.20-5.40); Red Cell Dist. Width 11.9 % (11.5-14.5); White Blood Cell Count 8.7 10^3/uL (4.8-10.8)
[2025-01-18 03:45] LABS: Blood Urea Nitrogen 13 mg/dl (7-17); Calcium 8.9 mg/dl (8.4-10.2); Carbon Dioxide 28 mmol/L (22-30); Chloride 101 mmol/L (98-107); Estimated Creatinine Clearance 76 ml/min; Glucose 130 mg/dl (70-99); Potassium 3.6 mmol/L (3.5-5.1); Sodium 139 mmol/L (135-145); eGFR > 60.00
--- NOTE | 2025-01-18 03:53 | PTCARENOTE ---
routine labs obtained, VSS, V paced per tele monitor, assessment remains unchanged
--- NOTE | 2025-01-18 04:21 | W.PN.CT ---
Today's Communication / Plan
-
Plan:
-No issues overnight. Hemodynamically and neurologically intact
-Had PPM placed yesterday 01/17 for postop CHB
-PPM pocket intact with Aquacel dressing and arm sling applied
-Currently v-paced @ 75 bpm
-Continue current meds (Amlodipine, ASA, Plavix, Crestor, Protonix, Lexapro)
-Will replete K of 3.6 today
-OOB into chair/Ambulate
-Likely home today, states it's her daughter's birthday
Assessment / Plan
-
- Severe symptomatic - s/p L TF TAVR w/ placement of 26mm EVOLUT FX+ on 01/13/25, pod #5
- Post-TTE: no AI/PVL, mean gradient 6mmHg
Readmitted 01/16 with CHB s/p RIJ TVP
- Acute postop CHB S/P PPM placement, 01/17/25
- CAD s/p recent PCI/stenting- on ASA and Plavix preop
- Pre-existing RBBB
- Post op LAFB
- MV prolapse, no sig MR
- RA
- HTN/HLD
- GERD
- Asthma
- Macular degeneration
- Mod-large hiatal hernia
- <4 mm pulmonary nodues
Discussed patient care with: Cardiology, Nursing and Care Team
Subjective
-
Date of Service: January 18, 2025
Pt c/o mild tenderness at PPM pocket site, otherwise feels well
Objective Data
-
Lab Results
01/18/25 03:04
01/18/25 03:04
PT 14.5 Sec (11.4-14.6) 01/17/25 04:38
INR 1.09 01/17/25 04:38
APTT 25.5 Sec (23.4-35.0) 01/17/25 04:38
Vital Signs
Vital Signs
Temp Pulse Resp BP Pulse Ox
98.7 F 81 18 142/66 95
01/18/25 03:52 01/18/25 03:30 01/18/25 03:52 01/18/25 03:06 01/18/25 03:52
CT Intake/Output/Weight
01/17/25 01/17/25 01/18/25
06:59 18:59 06:59
Intake Total 960 / 1200 240 / 1200
Output Total 700 / 1300 200 / 200
Balance -700 / -820 760 / 1000 240 / 1000
SaO2: 95 (RA)
Physical Exam
-
General: Awake, Oriented and AOx3
Cardiovascular: Regular rate & rhythm (v-paced @ 76 bpm)
Respiratory: Clear
Sternum: Stable
Incision: Clean, Dry, Intact and Dressing Intact
Extremities: No Edema
Data Reviewed
-
Lab Results: Results Reviewed
Medications: Active Meds Reviewed
Chest X-Ray: Report Reviewed and Image Reviewed
ECG: Report Reviewed and Image Reviewed
[2025-01-18] MEDS: KCL 40 MEQ PO (05:56)
--- NOTE | 2025-01-18 07:31 | PTCARENOTE ---
Received pt from rn night RN; pt AAOx3; V paced on monitor and VSS; PIV x3 patent; lungs diminished; positive bowel sounds; pt voiding yellow urine; palpable pulses throughout; no edema noted; all surgical sites C/D/I; see nursing documentation
for further details.
[2025-01-18 07:42] VITALS: BP 137/59
[2025-01-18] MEDS: TOPROL XL 50 MG PO (07:45)
[2025-01-18] MEDS: VITAMIN D3 (cholecalciferol) 50 MCG PO (07:45)
[2025-01-18] MEDS: PLAVIX 75 MG PO (07:45)
[2025-01-18] MEDS: PROTONIX 40 MG PO (07:45)
[2025-01-18] MEDS: ASPIR LOW (ENTERIC COATED) 81 MG PO (07:45)
[2025-01-18] MEDS: THERAGRAN 1 TABLET PO (07:45)
[2025-01-18] MEDS: NORVASC 10 MG PO (07:45)
[2025-01-18] MEDS: OSCAL 500 + D 500 MG PO (07:45)
[2025-01-18] MEDS: OCUVITE SOFTGEL 1 CAP PO (07:45)
--- NOTE | 2025-01-18 08:27 | W.PN.CD ---
Today's Communication / Plan
-
discharge to home on current medication regimen
Impression / Plan
-
79 year old woman with past medical history of severe status post TAVR with Evolute Fx Plus 26 mm valve c/b CHB s/p conduction system PPM, CAD s/p PCI to LAD/LCx, RA, HTN, macular degeneration.
# CHB
- doing well with dual chamber conduction system PPM
# s/p TAVR
- cont asa
- standard TAVR follow up
# CAD s/p PCI LAD/LCx
- cont. ASA/plavix, statin
- PPI
# PACs/PVCs
- frequent on monitor
- starting metoprolol 50 qD and holding atenolol
# HTN
- cont. norvasc
- holding home atenolol given new start metoprolol
Physical Exam
Vital Signs/Labs
Vital Signs
Temp Pulse Resp BP Pulse Ox
36.8 C 80 20 137/59 96
01/18/25 07:50 01/18/25 07:42 01/18/25 07:50 01/18/25 07:42 01/18/25 07:50
01/17/25 01/18/25 01/19/25
06:59 06:59 06:59
Actual Weight 73.5 kg 73.9 kg
01/18/25 03:04
01/18/25 03:04
PT 14.5 Sec (11.4-14.6) 01/17/25 04:38
INR 1.09 01/17/25 04:38
APTT 25.5 Sec (23.4-35.0) 01/17/25 04:38
Magnesium 2.1 mg/dl (1.6-2.3) 01/17/25 04:38
Physical Exam
Constitutional: No acute distress
Cardiovascular: Rhythm & rate is regular
Respiratory: Respiratory effort normal
Neuro/Psych: AO x 3
Data Reviewed
-
Date of Service: January 18, 2025
Medical Decision Making: Reviewed Test Results
EKG: Tracing Personally Visualized and interpreted and Report Reviewed by me
Labs: Labs Reviewed by me
--- NOTE | 2025-01-18 09:05 | CM ---
Reviewed chart. Met with Mrs. Naidu to review discharge plans. She states she is fee;ling well and maybe able to go home soon. We reviewed a home visit by the Transitional Care Nurse. She is agreeable to a home visit. Prior to admission she
resides with her spouse in a spilt level home without any steps to enter. She has four steps to get to the main area and seven steps to get to bedroom/full bathroom. Prior to admission she was independent with ambulation and adls. She does not have
any DME in the home. She has a prescription plan and [facility]. She states her spouse will be home to assist in her care if needed. Medical work-up in progress. The discharge plan is to return home with her spouse and a home visit by the
Transitional Care Nurse when medically stable.
--- NOTE | 2025-01-18 10:36 | W.DCSUMMARY ---
Discharge Summary
Discharge Data
Date of Admission: 01/16/25
Date of Discharge: 01/18/25
Total time spent discharging patient (in min): 25
-
Pending Results: No
Hospital Course
Primary care physician:
Dr. Obregon
Outpatient electric deicer inspector:
Dr Keen
Inpatient consultants:
CBC
Procedures:
1. PPM placement, 01/17/25
Primary Diagnosis:
1. Complete heart block
Secondary Diagnoses:
1. Hypertension
2. GERD
3. Macular degeneration
4. Acute postop left bundle branch block
5. Rheumatoid arthritis
6. Mitral valve prolapse without mitral regurgitation
7. Coronary artery disease s/p PCI
8. Severe s/p TAVR
HPI: 80-year-old female status post transfemoral transcatheter aortic valve replacement on 01/13 presents to the emergency room with complaints of dizziness and found to be in complete heart block.
Hospital course:
Patient was admitted to [facility] on 01/16 after being readmitted for dizziness/lightheadedness/blurry vision. She was found to have complete heart block and required adenosine in the ER and had a right IJ TVP placed by Dr. Hartley. Patient
was stabilized over the weekend and on 01/13 for a permanent pacer was placed. On 01/18 pacemaker was interrogated patient was deemed stable for discharge home and there were no changes to her medications.
Home medication changes:
None
Discharge Plan
-
Patient Disposition: Home (Routine Discharge)
Discharge Diagnosis/Procedures: Heart block, s/p pacemaker implant
Condition: Good
Diet: 2 Gram Sodium
Activity: No strenuous activity
Driving Restrictions: No driving for 1 week
Bathing Restrictions: OK to Shower
Other Services: Cardiac Rehab
Specialty Instructions: Weigh Daily- Call MD for wt gain/loss 3 lbs overnight/5 lbs in 1 week
Stand Alone Forms: DC Inst - Implanted Device
Referrals:
[facility] [Provider Group] - 01/24/25 1:00 pm (Post device incision check appointment)
CT Transitional Care Nurse [Outside] - in one to two days
(
The Cardiothoracic Transitional Care Nurse will call you to set up a visit in 1-2 days.)
Linda Obregon NP [Family Provider] -
Dave Keen MD [Active] - 02/24/25 9:20 am (Cardiology followup appointment)
Prescriptions:
New
acetaminophen 325 mg Tablet
650 mg PO Q4HPRN PRN (Reason: mild pain/ALBERT/temp> 100.4F) Qty: 0 0RF
metoprolol succinate 50 mg Tablet Extended Release 24 Hr
50 mg PO DAILY Qty: 60 1RF
Continued
leflunomide 10 mg Tablet
10 mg PO DAILY
amlodipine 10 mg Tablet
10 mg PO DAILY
escitalopram oxalate 10 mg Tablet
10 mg PO HS
PreserVision AREDS 2,148 mcg-113 mg-45 mg-17.4mg Tablet
1 tab PO BID
rosuvastatin 10 mg tablet
10 mg PO HS
clopidogrel 75 mg Tablet
75 mg PO DAILY Qty: 90 3RF
pantoprazole 40 mg Tablet,Delayed Release (Dr/Ec)
40 mg PO DAILY Qty: 90 3RF
calcium carbonate-vitamin D3 600 mg-5 mcg (200 unit) Tablet
1 tab PO BID
aspirin 81 mg Tablet,Delayed Release (Dr/Ec)
81 mg PO DAILY
gabapentin 300 mg Capsule
300 mg PO HS
tmqihkpvafns-gytemzhb-bviiaj Tablet
1 tab PO DAILY
cholecalciferol (vitamin D3) [Vitamin D3] 50 mcg (2,000 unit) Capsule
50 mcg PO DAILY
Discharge Orders:
Discharge Patient (As Directed); Ordered 01/18/25
Ordered By: Rebecca Arellano
Care Plan Goals
Care Plan Goals:
Problem: Readiness for enhanced knowledge related to diagnosis and treatment plan
Goal: Understand your diagnosis and treatment plan needs, including medications if applicable.
Instructions: Know your diagnosis, underlying causes and treatment plan options, including medications if applicable. Consult with your health care team to learn about your diagnosis and treatment plan, including medications if applicable.
Discharge Date and Time
Discharge Date/Time: 01/18/25 12:42
Print Language: WELSH
[2025-01-18 12:05] VITALS: BP 120/62
--- NOTE | 2025-01-18 12:21 | PTCARENOTE ---
Assessment unchanged; V paced on monitor and VSS; family at bedside and discharge paperwork gone over with pt and ; all questions answered; IV removed and calculus teacher removed; awaiting transport for discharge.
== END 2025-01-18 12:42 | disposition home or self-care (01) | DRG 243 ==
LOC: CVICU 05:16
PROVIDERS: Internal Medicine Cardiovascular Disease; Internal Medicine Interventional Cardiology; Nurse Practitioner; ADMITTING PHYSICIAN Thoracic Surgery (Cardiothoracic Vascular Surgery); CONSULT PHYSICIAN Internal Medicine Cardiovascular Disease; EMERGENCY PHYSICIAN Emergency Medicine; FAMILY PHYSICIAN Nurse Practitioner Family
PROC: 5A1223Z Performance of Cardiac Pacing, Continuous (ICD-10-PCS; 2025-01-16)
PROC: 02HK3JZ Insertion of Pacemaker Lead into Right Ventricle, Percutaneous Approach (ICD-10-PCS; 2025-01-16)
PROC: 0JH606Z Insertion of Pacemaker, Dual Chamber into Chest Subcutaneous Tissue and Fascia, Open Approach (ICD-10-PCS; 2025-01-17)
PROC: 02H63JZ Insertion of Pacemaker Lead into Right Atrium, Percutaneous Approach (ICD-10-PCS; 2025-01-17)
PROC: 3E0102A Introduction of Anti-Infective Envelope into Subcutaneous Tissue, Open Approach (ICD-10-PCS; 2025-01-17)
DX: I97.190 Other postprocedural cardiac functional disturbances following cardiac surgery (principal); I44.2 Atrioventricular block, complete; I45.2 Bifascicular block; I25.10 Atherosclerotic heart disease of native coronary artery without angina pectoris; I10 Essential (primary) hypertension; H53.9 Unspecified visual disturbance; E78.00 Pure hypercholesterolemia, unspecified; H35.30 Unspecified macular degeneration; K21.9 Gastro-esophageal reflux disease without esophagitis; M06.9 Rheumatoid arthritis, unspecified; R73.03 Prediabetes; R09.02 Hypoxemia; K44.9 Diaphragmatic hernia without obstruction or gangrene; I49.3 Ventricular premature depolarization; Y83.8 Other surgical procedures as the cause of abnormal reaction of the patient, or of later complication, without mention of misadventure at the time of the procedure; Y92.9 Unspecified place or not applicable; Z96.641 Presence of right artificial hip joint; Z86.79 Personal history of other diseases of the circulatory system; Z95.5 Presence of coronary angioplasty implant and graft; Z95.2 Presence of prosthetic heart valve; Z79.02 Long term (current) use of antithrombotics/antiplatelets; Z79.82 Long term (current) use of aspirin; Z91.048 Other nonmedicinal substance allergy status
CPT/HCPCS: 33208; 33210; 70450; 71045; 76937; 80048; 80053; 83735; 85025; 85027; 85610; 85730; 86850; 86900; 86901; 93005; 96374; 99152; 99153; 99291; C1769; C1785; C1887; C1892; C1898